=== PATIENT | female | born 1965 | race Caucasian/White ===

== ENCOUNTER 2018-07-24 07:19 | Outpatient (CLI) | payer OTHER, SELFPAY ==
--- NOTE | 2018-07-24 07:45 | DI.MAMMO_ITS ---
SYMPTOM/DIAGNOSIS: SCREENING, FAMILY H/O BREAST CA, Z12.31 MAMMOGRAMS: Mammograms were interpreted according to the usual protocol including computer analysis with CAD system, tomosynthesis and C view imaging. The breasts are heterogeneously dense. No dominant mass or clumped microcalcification is identified in either breast. The current examination is compared with previous examinations including 08/2016 and there has been no gross interval change in appearance in comparison with the previous studies. CONCLUSION: No specific evidence of malignancy at this time. Routine screening examinations are suggested at yearly intervals in this age group according to the ACS/ACR guidelines. Category 1. Breast density, category C. MQSA ASSESSMENT OF FINDINGS: Negative. Category 1. Patient will receive a letter notifying them of these results. Bi-RADS category C. The breasts are heterogeneously dense, which may obscure small masses.
== END 2018-07-24 07:39 ==
PROVIDERS: PCP Internal Medicine; Visit Provider Nurse Practitioner Women's Health
DX: Z12.31 Encounter for screening mammogram for malignant neoplasm of breast (principal); Z80.3 Family history of malignant neoplasm of breast
CPT/HCPCS: 77063; 77067

== ENCOUNTER 2019-03-20 09:36 | Outpatient (CLI) | payer OTHER, SELFPAY ==
--- NOTE | 2019-03-20 09:27 | MERGE_ITS ---
*[facility]* *[facility]* [address] [place] [address] Date of study: 03/20/2019 Transthoracic Echocardiography M-mode, complete 2D, complete spectral Doppler, and color Doppler *STUDY CONCLUSIONS* Summary: 1. Left ventricle: The cavity size was normal. Systolic function was normal. The estimated ejection fraction was 60-65%. Diastolic parameters were normal. There was no evidence of elevated ventricular filling pressure by Doppler parameters. 2. Mitral valve: There was mild regurgitation. 3. Right ventricle: The cavity size was normal. Wall thickness was normal. Systolic function was normal. 4. Atrial septum: No defect or patent foramen ovale was identified. 5. Pulmonary arteries: Systolic pressure could not be accurately estimated. 6. Inferior vena cava: The vessel was normal in size. The respirophasic diameter changes were in the normal range (greater than or equal to 50%), consistent with normal central venous pressure. *PATIENT PRESENTATION* Height: 170.2cm ((67in) ) S/D Pressure: 122 / 73 Weight: 78.5kg ((172.6lb) ) BSA: 1.94m^2 Test start time: 09:30 AM. Test stop time: 10:12 AM. ORDERING Lillian Curry REFERRING Lillian Curry PERFORMING Unknown PERFORMING [facility] MANAGER BALANCE Rachel Johnston CONSULTING Sydney Figueroa *PROCEDURE DATA* Procedure information: This study was interpreted by [facility]. Pertinent images and digital data are archived for permanent storage and are available for subsequent review. Comparison was made to the study of 02/13/2015. Study status: Routine. Transthoracic echocardiography. M-mode, complete 2D, complete spectral Doppler, and color Doppler. A Transthoracic Echocardiogram was performed. Scanning was performed from the parasternal, apical, subcostal, and suprasternal notch acoustic windows. Images were obtained using an [employer]geusAor[employer] SC 2000 cardiac ultrasound machine. Image quality was good. Study completion: The patient tolerated the procedure well. History: PMH: Atrial fibrillation, F/H premature CAD. *CARDIAC ANATOMY* Left ventricle: The cavity size was normal. Systolic function was normal. The estimated ejection fraction was 60-65%. The tissue Doppler parameters were normal. Diastolic parameters were normal. There was no evidence of elevated ventricular filling pressure by Doppler parameters. Aortic valve: Trileaflet. Doppler: There was no stenosis. There was no regurgitation. VTI ratio of LVOT to aortic valve: 0.91. Valve area (VTI): 2.2cm^2. Indexed valve area (VTI): 1.1cm^2/m^2. Peak velocity ratio of LVOT to aortic valve: 0.78. Valve area (Vmax): 1.9cm^2. Indexed valve area (Vmax): 1cm^2/m^2. Mean velocity ratio of LVOT to aortic valve: 0.73. Valve area (Vmean): 1.7cm^2. Indexed valve area (Vmean): 0.9cm^2/m^2. Mean gradient (S): 4.5mm Hg. Peak gradient (S): 8.7mm Hg. Aorta: Aortic root: The aortic root was normal in size. Ascending aorta: The ascending aorta was normal in size. Mitral valve: Doppler: There was no evidence for stenosis. There was mild regurgitation. Valve area by pressure half-time: 4.4cm^2. Indexed valve area by pressure half-time: 2.3cm^2/m^2. Peak gradient (D): 3.4mm Hg. Left atrium: The atrium was normal in size. Atrial septum: No defect or patent foramen ovale was identified. Right ventricle: The cavity size was normal. Wall thickness was normal. Systolic function was normal. Pulmonic valve: Doppler: There was no evidence for stenosis. There was no significant regurgitation. Peak gradient (S): 3.1mm Hg. Tricuspid valve: Doppler: There was mild regurgitation. Pulmonary artery: Poorly visualized. Systolic pressure could not be accurately estimated. Right atrium: The atrium was normal in size. Pericardium: There was no pericardial effusion. Systemic veins: Inferior vena cava: The vessel was normal in size. The respirophasic diameter changes were in the normal range (greater than or equal to 50%), consistent with normal central venous pressure. Measurements Left ventricle Value Reference LV ID, ED, PLAX 4.5 cm 3.5 - 6.0 LV ID, ES, PLAX 2.9 cm 2.1 - 4.0 LV PW thickness, ED, PLAX 0.9 cm LV end-diastolic volume, 1-p A2C 75 ml LV ejection fraction, 1-p A2C 56 % LV end-diastolic volume, 1-p A4C 89 ml LV ejection fraction, 1-p A4C 60 % LV e', lateral 0.112 m/sec LV E/e', lateral 8 LV e', medial 0.131 m/sec LV E/e', medial 7 LV e', average 0.122 m/sec LV E/e', average 8 Ventricular septum Value Reference IVS thickness, ED, PLAX 0.9 cm LVOT Value Reference LVOT ID, A-P 1.7 cm LVOT area 2.4 cm^2 LVOT peak velocity, S 1.15 m/sec LVOT mean velocity, S 0.73 m/sec LVOT VTI, S 29.1 cm LVOT peak gradient, S 5.3 mm Hg LVOT mean gradient, S 2.6 mm Hg Stroke volume (SV), LVOT DP 69 ml Stroke index (SV/bsa), LVOT DP 36 ml/m^2 Aortic valve Value Reference Aortic valve peak velocity, S 1.5 m/sec Aortic valve mean velocity, S 1 m/sec Aortic valve VTI, S 32.0 cm Aortic mean gradient, S 4.5 mm Hg Aortic peak gradient, S 8.7 mm Hg VTI ratio, LVOT/AV 0.91 Aortic valve area, VTI 2.2 cm^2 Velocity ratio, peak, LVOT/AV 0.78 Aortic valve area, peak velocity 1.9 cm^2 Velocity ratio, mean, LVOT/AV 0.73 Aortic valve area, mean velocity 1.7 cm^2 Aortic valve area/bsa, mean velocity 0.9 cm^2/m^2 Aorta Value Reference Aortic root ID, ED 2.9 cm Ascending aorta ID, A-P, S 2.7 cm Left atrium Value Reference LA ID, A-P, ES 3.0 cm LA ID/bsa, A-P 1.5 cm/m^2 <=2.2 LA area, ES, A4C 21.4 cm^2 8.8 - 23.4 LA area, ES, A2C 22 cm^2 LA volume/bsa, S 36 ml/m^2 LA volume, ES, 2-p 63 ml LA volume/bsa, ES, 2-p 33 ml/m^2 LA/aortic root ratio 1.03 Mitral valve Value Reference Mitral E-wave peak velocity 0.92 m/sec Mitral A-wave peak velocity 0.55 m/sec Mitral deceleration time 171 ms 150 - 230 Mitral pressure half-time 50 ms Mitral peak gradient, D 3.4 mm Hg Mitral E/A ratio, peak 1.65 Mitral valve area, PHT, DP 4.4 cm^2 Right atrium Value Reference RA area, ES, A4C 16.7 cm^2 8.3 - 19.5 Pulmonic valve Value Reference Pulmonic peak gradient, S 3.1 mm Hg Legend: (L) and (H) sarah values outside specified reference range. I have personally reviewed the images and have reviewed and edited the reported findings. Electronically signed by Bret Layne MD 03/20/2019 19:06
== END 2019-03-20 09:56 ==
PROVIDERS: PCP Internal Medicine; Visit Provider Family Medicine
DX: I48.91 Unspecified atrial fibrillation (principal); I34.0 Nonrheumatic mitral (valve) insufficiency; Z82.49 Family history of ischemic heart disease and other diseases of the circulatory system
CPT/HCPCS: 93306

== ENCOUNTER 2020-01-11 08:32 | Emergency (ER) | payer OTHER, SELFPAY ==
[2020-01-11] VITALS (30 sets, daily range): BP systolic 104–155; BP diastolic 47–78; PULSE 54–78; RESP 8–18; TEMP 36.8; O2SAT 91–99
--- NOTE | 2020-01-11 08:38 | ED.GENADUL_ITS ---
Discharge Plan Disposition Patient Disposition: HOME Condition: Stable Discharge Details Chief Complaint: Palpitatns Clinical Impression: Palpitations Primary Care Provider: Sydney Figueroa ED Provider: Cortney Osborne Home Meds and New Rx's Prescriptions: Continued estradiol 0.5 MG tablet 1 tab PO DAILY Qty: 90 RF: 12 diltiazem HCl 120 MG capsule,extended release 24hr 120 mg PO DAILY Qty: 90 RF: 12 Discharge Instructions Instructions: Atrial Fibrillation (ED), Palpitations (ED) Additional Instructions: Please return immediately to the emergency department if you develop any new or worsening symptoms, if your condition does not improve as expected, or if you become otherwise concerned. It is extremely important that you call soon as possible to make an appointment to be seen in follow-up for this visit by your primary care doctor and your medical radiation therapist as we discussed. o be seen in follow- up for this visit by your primary care doctor. Seen in follow-up for this visit by your primary care doctor. Referrals: Sydney Figueroa [Primary Care Provider] - Medical Decision Making Kaleigh Infante is a 54-year-old woman with a history of paroxysmal atrial fibrillation on daily diltiazem who presented to the emergency department with palpitations and chest tightness consistent with her typical paroxysmal A. fib symptoms that began at 645 this morning and did not resolve with her morning dose of p.o. diltiazem; now resolved after 10 mg IV diltiazem from EMS in the field. On exam patient is very well and nontoxic-appearing. Benign cardiopulmonary exam. Suspect paroxysmal atrial fibrillation, possible metabolic/lyte derangement. Doubt ACS, pulmonary embolism. Exam/history is not consistent with sepsis, covid-19, acute aortic pathology. Plan for EKG, telemetry, chest x-ray, screening labs. Will monitor and reassess. Patient has had no symptoms since being in the emergency department. Patient has been in sinus rhythm on telemetry for the entirety of her stay. Labs nondiagnostic. Chest x-ray negative. Repeat EKG shows no dynamic changes. Troponin negative x2. I did discuss patient presentation results with her medical radiation therapist, Dr. Cassidy. Dr. Cassidy requested 48-hour Holter monitor, no other acute intervention, will follow up with patient as an outpatient. Holter monitor placed by respiratory therapy. I had a lengthy discussion with Patient regarding return to emergency department precautions, home care, and importance of outpatient follow-up. Pt verbalizes understanding of the plan and is amenable. Patient discharged to home with clear plan for outpatient follow-up. All questions were answered. Disposition decision was made weighing the risks and benefits of hospitalization versus outpatient treatment, the risk for further decompensation, and the patient's wishes. Medical Records Medical records reviewed: Yes I reviewed the patient's medical records. Imaging Data Radiologic Study: Attestation: I personally reviewed and interpreted this imaging study as follows: Radiologist's impression: EXAM: XR PORTABLE CHEST AP CLINICAL HISTORY: afib, chest pain TECHNIQUE: 2D digital imaging was performed. COMPARISON: CHEST 2 VIEWS PA,LAT from 07/27/2017 FINDINGS: Leads overlie the chest. The cardiac and mediastinal contours have a normal appearance. The lungs are well inflated and clear. No infiltrate, effusion or pulmonary edema is seen. IMPRESSION: Negative portable chest. Lab Data Lab results reviewed: Yes I reviewed the patient's lab results. Labs: Laboratory Tests Range/Units 01/11/20 01/11/20 01/11/20 08:45 08:45 08:45 WBC (4.4-10.8) k/cumm 8.68 RBC (4.00-5.20) m/cumm 4.51 Hgb (12.0-15.5) g/dL 13.7 Hct (36.0-46.0) % 41.0 MCV (80-95) fL 90.9 MCH (27.0-33.0) pg 30.4 MCHC (32.0-36.0) g/dL 33.4 RDW (11.7-14.6) % 13.4 Plt Count (130-400) x1000/uL 356 MPV (8.0-11.0) fL 10.6 Immature Gran % % 0.2 Neutrophils % 63.1 Lymphocytes % 25.8 Monocytes % 7.7 Eosinophils % 2.9 Basophils % 0.3 Absolute Neutrophils (1.2-6.7) k/cumm 5.47 Absolute Lymphocytes (1.2-3.4) k/cumm 2.24 Absolute Monocytes (0.11-0.7) k/cumm 0.67 Absolute Eosinophils (0.0-0.7) k/cumm 0.25 Absolute Basophils (0.0-0.2) k/cumm 0.03 D-Dimer (<500) ng/mlFEU 415 Sodium (136-145) mmol/L 142 Potassium (3.5-5.1) mmol/L 3.4 L Chloride (98-107) mmol/L 106 Carbon Dioxide (21.0-32.0) mmol/L 25.1 Anion Gap (3-11) mmol/L 10.9 BUN (7-18) mg/dL 12 Creatinine (0.55-1.02) mg/dL 0.90 Estimated GFR/1.73 m2 (mL/min/1.73m2) >= 60.00 Glucose (74-106) mg/dL 105 Calcium (8.5-10.1) mg/dL 9.3 Magnesium (1.8-2.4) mg/dL 2.0 Total Bilirubin (0.2-1.0) mg/dL 0.4 AST (15-37) U/L 21 ALT (14-59) U/L 33 Alkaline Phosphatase (46-116) U/L 89 Troponin I (<0.06) ng/Ml < 0.05 Total Protein (6.4-8.2) g/dL 8.0 Albumin (3.4-5.0) g/dL 4.0 TSH (0.36-3.74) uIU/mL 4.89 H Free T4 (0.76-1.46) ng/dL 1.16 Range/Units 01/11/20 11:50 WBC (4.4-10.8) k/cumm RBC (4.00-5.20) m/cumm Hgb (12.0-15.5) g/dL Hct (36.0-46.0) % MCV (80-95) fL MCH (27.0-33.0) pg MCHC (32.0-36.0) g/dL RDW (11.7-14.6) % Plt Count (130-400) x1000/uL MPV (8.0-11.0) fL Immature Gran % % Neutrophils % Lymphocytes % Monocytes % Eosinophils % Basophils % Absolute Neutrophils (1.2-6.7) k/cumm Absolute Lymphocytes (1.2-3.4) k/cumm Absolute Monocytes (0.11-0.7) k/cumm Absolute Eosinophils (0.0-0.7) k/cumm Absolute Basophils (0.0-0.2) k/cumm D-Dimer (<500) ng/mlFEU Sodium (136-145) mmol/L Potassium (3.5-5.1) mmol/L Chloride (98-107) mmol/L Carbon Dioxide (21.0-32.0) mmol/L Anion Gap (3-11) mmol/L BUN (7-18) mg/dL Creatinine (0.55-1.02) mg/dL Estimated GFR/1.73 m2 (mL/min/1.73m2) Glucose (74-106) mg/dL Calcium (8.5-10.1) mg/dL Magnesium (1.8-2.4) mg/dL Total Bilirubin (0.2-1.0) mg/dL AST (15-37) U/L ALT (14-59) U/L Alkaline Phosphatase (46-116) U/L Troponin I (<0.06) ng/Ml < 0.05 Total Protein (6.4-8.2) g/dL Albumin (3.4-5.0) g/dL TSH (0.36-3.74) uIU/mL Free T4 (0.76-1.46) ng/dL ECG Data Attestation: I personally reviewed and interpreted this ECG (s) as follows: Interpretation: EKG shows sinus rhythm at 75, normal axis, T wave flattening aVL, subtle ST depression 0.5 mm in leads II, V5, V6, otherwise unchanged from prior, no STEMI, nondiagnostic EKG Repeat EKG shows sinus bradycardia at 58, normal axis, no STEMI, no significant change from today's prior EKG HPI General Mode of arrival: EMS . Date/Time Provider Initiated Documentation: 01/11/20 08:33 . Limitations to Documentation: no limitations . Information obtained by: patient, RN notes reviewed and old records reviewed . HPI Narrative: Kaleigh Infante is a 54-year-old woman with a history of atrial fibrillation presenting to the emergency room with palpitations. Patient reports that she has a history of paroxysmal atrial fibrillation for which she takes daily diltiazem. She reports that she typically has episodes of atrial fibrillation every 2 months or so. Patient reports that over the past week she feels as if she has been going into atrial fibrillation several times, which is unusual for her. Up until today episodes have lasted less than a minute. Patient reports that she woke up feeling in her usual state of health at cheryle roximately 530 this morning. She reports that she felt herself going to atrial fibrillation with palpitations and chest tightness, both typical for her during these episodes, at approximately 645. Patient reports that she took her daily diltiazem at this time, however symptoms did not change. Patient called EMS, and received 10 mg IV diltiazem in route. Patient reports that symptoms resolved rapidly after this medication and patient converted to sinus rhythm in the field per EMS. Patient reports that she currently has no symptoms and feels in her usual state of health. She denies any other recent symptoms: No fever, cough, shortness of breath, vomiting, diarrhea, numbness, weakness. She denies any recent travel, immobilization. Denies alcohol, tobacco, or recreational drug use. Has been eating and drinking as usual. Related Data Home Medications Medication Instructions Recorded Confirmed estradiol 1 tab PO DAILY #90 tab 06/28/17 01/11/20 diltiazem HCl 120 mg PO DAILY #90 tab-cap 08/13/17 01/11/20 Previous Rx's Medication Instructions Recorded estradiol 1 tab PO DAILY #90 tab 06/28/17 diltiazem HCl 120 mg PO DAILY #90 tab-cap 08/13/17 Allergies Allergy/AdvReac Type Severity Reaction Status Date / Time No Known Allergies Allergy Unverified 01/11/20 08:41 Review of Systems Narrative: Constitutional: denies fevers Eyes: denies eye pain ENT: denies ear pain, dental pain, sore throat Cardiovascular: denies chest pain, reports palpitations, her typical mild chest tightness concurrent with earlier palpitations Respiratory: denies SOB, cough GI: denies abdominal pain, vomiting, diarrhea : denies flank pain MSK: denies back pain, neck pain, arthralgias, myalgias Skin: denies rash Neuro: denies headaches, numbness, weakness [facility] Surgical History (Updated 07/16/18 @ 14:36 by Qianmi CA) Abdominal hysterectomy (~02/2005) FINGER FUSION (~02/2015) Family History Mother Essential hypertension Heart disease BYPASS Hyperlipidemia Father Essential hypertension Personal history of malignant neoplasm PROSTATE Hyperlipidemia Sister Essential hypertension Hyperlipidemia Brother Essential hypertension Hyperlipidemia Grandfather No problems noted. Grandfather No problems noted. Grandmother No problems noted. Grandmother No problems noted. Sister Essential hypertension Hyperlipidemia Son No problems noted. Son No problems noted. Daughter Depression Social History Smoking/Tobacco Use Status: Never Alcohol Intake: never Drug use: Never Do you feel safe in your relationship?: Yes Exam Narrative Exam Narrative: Constitutional: well and [id number]-[id number], pleasant, conversing normally HENT: head atraumatic/normocephalic/normal inspection, mucous membranes moist Eyes: conjunctiva normal, sclera normal, pupils 3mm b/l Neck: no stridor, normal ROM, trachea midline Chest: normal inspection Resp: normal work of breathing, LCTAB Cardio: normal rate, normal rhythm, no murmur appreciated Back: normal inspection, no rash Skin: warm, dry, normal color, no rash Neuro: alert, not altered, grossly non-focal, normal tone Ext: no edema Psych: normal mood, normal affect, normal behavior
[2020-01-11 08:56] LABS: Abs Immature Grans 0.02 k/cumm (0.0-0.09); Absolute Basophil Count 0.03 k/cumm (0.0-0.2); Absolute Eosinophil Count 0.25 k/cumm (0.0-0.7); Absolute Lymphocyte Count 2.24 k/cumm (1.2-3.4); Absolute Monocyte Count 0.67 k/cumm (0.11-0.7); Absolute Neutrophil Count 5.47 k/cumm (1.2-6.7); Basophils % 0.3; Eosinophils % 2.9; HGB 13.7 g/dL (12.0-15.5); Immature Grans % 0.2 %; Lymphocytes % 25.8; Mean Corp. HGB Concentration 33.4 g/dL (32.0-36.0); Mean Corpuscular Hemoglobin 30.4 pg (27.0-33.0); Mean Corpuscular Volume 90.9 fL (80-95); Mean Platelet Volume 10.6 fL (8.0-11.0); Monocytes % 7.7; Neutrophils % 63.1; Platelet Count 356 x1000/uL (130-400); RBC 4.51 m/cumm (4.00-5.20); RBC Distribution Width 13.4 % (11.7-14.6); White Blood Cell Count 8.68 k/cumm (4.4-10.8)
--- NOTE | 2020-01-11 09:01 | DI.RAD_ITS ---
EXAM: XR PORTABLE CHEST AP CLINICAL HISTORY: afib, chest pain TECHNIQUE: 2D digital imaging was performed. COMPARISON: CHEST 2 VIEWS PA,LAT from 07/27/2017 FINDINGS: Leads overlie the chest. The cardiac and mediastinal contours have a normal appearance. The lungs are well inflated and clear. No infiltrate, effusion or pulmonary edema is seen. IMPRESSION: Negative portable chest.
[2020-01-11 09:31] LABS: D-Dimer 415 ng/mlFEU (<500)
[2020-01-11 10:27] LABS: ALT 33 U/L (14-59); AST 21 U/L (15-37); Alkaline Phosphatase 89 U/L (46-116); Anion Gap 10.9 mmol/L (3-11); BUN 12 mg/dL (7-18); Bilirubin, Total 0.4 mg/dL (0.2-1.0); CO2 25.1 mmol/L (21.0-32.0); Calcium 9.3 mg/dL (8.5-10.1); Chloride 106 mmol/L (98-107); Glucose 105 mg/dL (74-106); Potassium 3.4 mmol/L (3.5-5.1); Sodium 142 mmol/L (136-145); TSH (W/Ref FT4) 4.89 uIU/mL (0.36-3.74); Troponin I < 0.05 ng/Ml (<0.06)
[2020-01-11 10:43] LABS: FREE T4 1.16 ng/dL (0.76-1.46)
[2020-01-11 12:17] LABS: Troponin I < 0.05 ng/Ml (<0.06)
== END 2020-01-11 12:10 | disposition home or self-care (01) ==
PROVIDERS: Emergency Provider Student in an Organized Health Care Education/Training Program; PCP Internal Medicine
DX: R00.2 Palpitations (principal); I48.0 Paroxysmal atrial fibrillation; Z79.899 Other long term (current) drug therapy
CPT/HCPCS: 36415; 80053; 93005; 99284; 71045; 83735; 84439; 84443; 84484; 85025; 85379; 93010; 93225

== ENCOUNTER 2020-01-13 16:14 | Outpatient (REF) | payer OTHER, SELFPAY ==
--- NOTE | 2020-01-14 08:40 | W.HOLTRPT ---
Date of service: 01/14/20 Time of Service: 08:40 Holter Monitor Report Holter Monitor Note: This is a 48-hour Holter monitor ordered for indication of atrial fibrillation. ?The patient was in normal sinus rhythm for the majority of the recording. ?There were 5 episodes of supraventricular tachycardia with the longest lasting 7 beats at a rate of 136 bpm. There were rare premature atrial contractions. ?There was one episode of ventricular tachycardia which lasted 7 beats at a rate of 126 bpm. There were rare (0.1%) single ventricular ectopic beats. ?There were no episodes of atrial fibrillation no pauses greater than 3 seconds and no evidence of high degree heart block. ?There were no patient triggered events.
== END 2020-01-13 16:34 ==
LOC: RT 16:14
PROVIDERS: PCP Internal Medicine; Visit Provider Internal Medicine
DX: I48.91 Unspecified atrial fibrillation (principal); I47.1 Supraventricular tachycardia
CPT/HCPCS: 93226

== ENCOUNTER 2021-07-21 09:37 | Outpatient (REF) | payer OTHER, SELFPAY ==
[2021-07-21 14:55] LABS: C-Reactive Protein 0.35 mg/dL (0.0-0.3); Magnesium 2.1 mg/dL (1.8-2.4); TSH (W/Ref FT4) 3.42 uIU/mL (0.36-3.74)
[2021-07-21 16:18] LABS: ESR 24 mm/hr (0-30)
[2021-07-24 02:58] LABS: Vitamin D 25 Total 23.1 ng/mL (30-100)
== END 2021-07-21 09:38 | disposition home or self-care (01) ==
LOC: NCHCN 09:37
PROVIDERS: PCP Internal Medicine; Visit Provider Nurse Practitioner Family
DX: M25.59 Pain in other specified joint (principal); G47.9 Sleep disorder, unspecified; Z90.710 Acquired absence of both cervix and uterus
CPT/HCPCS: 82306; 85652; 83735; 84443; 86140

== ENCOUNTER 2022-05-04 10:07 | Day surgery (SDC) | payer OTHER, SELFPAY ==
--- NOTE | 2022-05-03 12:44 | PDOC.DSDIS_ITS ---
Discharge Plan Disposition Patient Disposition: HOME Condition: Good Discharge Details Reason For Visit: colon scope Attending Provider: Adri Cowart Primary Care Provider: Jordyn Bruno Home Meds and New Rx's Prescriptions: Continued flecainide 50 mg tablet 50 mg PO Q12H diltiazem HCl [DILT-XR] 180 mg capsule,ext.rel 24h degradable 240 mg PO DAILY losartan 25 mg tablet 25 tab PO DAILY Label Comments: TAKE ONE TABLET BY MOUTH EVERY DAY Discontinued bisacodyl [Dulcolax (bisacodyl)] 5 mg tablet,delayed release (DR/EC) 5 mg PO ONCE Qty: 4 0RF Rx Instructions: Take according to provider's instructions for colonoscopy prep. polyethylene glycol 3350 17 gram/dose powder 17 g PO ONCE Qty: 238 0RF Rx Instructions: To be taken as directed by prescriber's office for colonoscopy prep. Discharge Instructions Additional Instructions: DSU Colonoscopy Post- Op Instructions Instructions for Everyone who is given Anesthesia: For your safety, please do the following for the next twenty-four (24) hours: *Do Not operate a motor vehicle (car, truck, motorcycle, etc.) *Do Not drink alcoholic beverages or use any recreational drugs for the first 24 hours or while taking pain medications. The medications in your body may have a reaction that can be dangerous. *Do Not make any important decisions or sign any important papers. Findings: x1 polyp Follow up: my office will send a letter in 2-3 wks time, detailing as to what type of polyp it is and when we want you to repeat the colonoscopy-probably 5-7yrs. 1. No lifting over 20 pounds or strenuous activity for the first 24 hours after your procedure. After 24 hours there are no restrictions on your activity but you may feel fatigued for a few days. 2. After you arrive home you may have a light meal and return to your normal diet as you can tolerate it without feeling sick to your stomach. 3. You may have a bloated, gaseous feeling in your belly (abdomen) after a colonoscopy. Passing gas and belching will help. Walking or lying down on your l eft side with your knees flexed may relieve the discomfort. Call the office at [phone] (Office) or [phone] (Hospital) right away if you notice any of the following: a.Vomiting of blood or ?coffee ground stools?. b.Rectal bleeding 1Tbsp, blood clots or continuous bleeding. c.Severe belly (abdominal) pain. d.A hard distended belly (abdomen) and an inability to pass gas. 4. Please don?t expect to have a normal BM (bowel movement) for 2-3 days after your procedure. 5. If there are questions regarding the findings of your procedure, please contact your doctor 6. If you are unable to contact your doctor with a problem, contact the hospital at [phone]. 7. Continue all your regular medications unless directed otherwise. I understand the above instructions and have no questions. Signature of Patient or Adult Escort Name of Responsible Adult Escort Signature of Nurse Date/Time Activity:: See above Diet:: See above Discharge Orders Discharge Orders: Discharge Order (Routine); Ordered 05/03/22 Ordered By: Adri Cowart
--- NOTE | 2022-05-03 12:46 | W.COLOREPORT ---
Colonoscopy Report Date of procedure: 05/04/22 Pre-op diagnosis general: CRC screen Post-op diagnosis procedure note: other (polyp) Surgeon: Adri Cowart Anesthesia Type: General:No Airway Estimated blood loss (mL): 1 Pathology: other Complications: None Disposition: same day Prep: Miralax/Dulcolax Retraction Time: 10 Procedure Description: After informed consent was obtained the patient was taken to the procedure room and placed in a left decubitous position. Monitors were applied and a time out was done. The patients name, date of , procedure, allergies to medications and metal in their body was reviewed. The scar abnormal, was then sedated. Once sedated and comfortable a rectal exam was done. External exam was normal. Internal exam revealed a normal sphincter tone and no palpable masses. The scope was then introduced and retrofelexed. No internal hemorrhoids were identified. The scope was then advanced to the cecum w/out difficulty. The TI and appendiceal orifice were identified. The prep was BBPS 3 in all segments for a total of 9. The scope was then slowly retracted over 10 minutes back into the rectum. There are no diverticula or AVMs visualized today. She has a 1cm polyp on a long stalk. This is removed with a cold snare. All specimen is retrieved and no bleeding is noted. the scope was removed and the patient was woken up and taken back to Same day surgery in stable condition. The patient tolerated the procedure well and there were no immediate complications. Follow up: The patient should follow up in 5-7 years, path pending, unless they develop changes in bowel habits or other new gastrointestinal complaints.
[2022-05-04 10:27] VITALS: BP 121/70; PULSE 76; RESP 17; TEMP 36.6; O2SAT 97
[2022-05-04] MEDS: Lactated Ringers 1,000 ML 80 ML IV (10:46)
--- NOTE | 2022-05-04 10:58 | W.ANESPRE ---
General Info Date of Service Date Performed: 05/04/22 Height: 5 ft 6 in Weight: 78.4 kg Body Mass Index (BMI): 27.8 Surgical Procedure: Operation Date: 05/04/22 11:35 Proposed Procedure Side Surgeon p Colonoscopy Adri Cowart, DO Actual Procedure Side Surgeon p Colonoscopy Adri Cowart, DO Pre-Op Diagnosis Post-Op Diagnosis SCREENING Meds Allergies and Home Medications Allergies Allergy/AdvReac Type Severity Reaction Status Date / Time No Known Allergies Allergy Unverified 05/04/22 10:22 Home Medication Medication Instructions Recorded flecainide 50 mg tablet 50 mg PO Q12H 10/12/21 diltiazem HCl 180 mg 240 mg PO DAILY 04/20/22 capsule,extended release 24 hr, controlled (DILT-XR) losartan 25 mg tablet 25 tab PO DAILY 05/03/22 Current Visit Medications: Current Medications Generic Name Dose Route Start Last Admin Trade Name Freq PRN Reason Stop Dose Admin Hyoscyamine Sulfate 0.125 mg 05/03/22 11:27 Hyoscyamine 0.125 Mg Sl/Oral/Chew SL DIRECTED PRN Ringer's Solution 1,000 mls @ 80 mls/hr 05/04/22 06:00 05/04/22 10:46 IV 06/02/22 23:59 80 mls/hr INFUSION ZACH Administration IV Miscellaneous Supplies 1 each 05/04/22 06:00 Iv Access IV 06/02/22 23:59 DIRECTED ZACH Ondansetron HCl 4 mg 05/03/22 11:27 Ondansetron 4 Mg/2 Ml Vial IVP Q4H PRN PRN Nausea / Vomiting Sodium Chloride 0 ml 05/04/22 06:00 Normal Saline Flush 10 Ml Syr IV 06/02/22 23:59 PRN PRN Sodium Chloride 0 ml 05/04/22 06:00 Normal Saline 10 Ml Vial IJ 06/02/22 23:59 DIRECTED PRN Sterile Water 0 ml 05/04/22 06:00 Water,Injection,Sterile 10 Ml Vial IJ 06/02/22 23:59 DIRECTED PRN PFSH Active Problems Active Problems: Problem Status Onset Code Atrial tachycardia I47.1 Fatigue R53.83 Screening for colon cancer Z12.11 Medical History Medical History Former smoker Paroxysmal atrial fibrillation Polyarthralgia Sleep disturbance Urinary urgency Vaginal atrophy Medical History Comments:: elderly parent had difficult time coming out Surgical History Surgical History (Updated 05/04/22 @ 10:25 by Opal Guallpa) Abdominal hysterectomy (~02/2005) FINGER FUSION (~02/2015) Hx of colonoscopy Tobacco Smoking/Tobacco Use Status: Never Alcohol Alcohol Intake: never Substance Use Substance use: Never Substance use type: does not use Vital Signs and Lab Results Vital Signs Most Recent Vital Signs in EMR: Most Recent Vital Signs Temp Pulse Resp BP Pulse Ox 36.6 C 76 17 121/70 97 05/04/22 10:27 05/04/22 10:27 05/04/22 10:27 05/04/22 10:27 05/04/22 10:27 Lab Results Blood Type / Crossmatch: No Data to Display Complete Blood Count: No Data to Display Complete Metabolic Panel: No Data to Display Liver Function Panel: No Data to Display Coagulation Panel: No Data to Display Cardiac Panel: No Data to Display Arterial Blood Gas: No Data to Display Venous Blood Gas: No Data to Display Pancreas Panel: No Data to Display Thyroid Panel: No Data to Display Infectious Disease: No Data to Display Blood Cultures: No Data to Display Toxicology Panel: No Data to Display Imaging and Studies Imaging and Studies Study information below may be from another EMR and interpreted by another provider. Please see original notes in EMR for more complete details. Stress Test Summary: Impressions: Normal perfusion by Tc99m Sest[facility]. Summary: 1. Myocardial perfusion imaging: No myocardial perfusion defects noted. 2. The calculated left ventricular ejection fraction after stress: 75%. 3. Impressions: Normal perfusion by Tc99m Sest[facility] Echocardiogram Summary: STUDY CONCLUSIONS* Summary: 1. Left ventricle: The cavity size was normal. Systolic function was normal. The estimated ejection fraction was 60-65%. Diastolic parameters were normal. There was no evidence of elevated ventricular filling pressure by Doppler parameters. 2. Mitral valve: There was mild regurgitation. 3. Right ventricle: The cavity size was normal. Wall thickness was normal. Systolic function was normal. 4. Atrial septum: No defect or patent foramen ovale was identified. 5. Pulmonary arteries: Systolic pressure could not be accurately estimated. 6. Inferior vena cava: The vessel was normal in size. The respirophasic diameter changes were in the normal range (greater than or equal to 50%), consistent with normal central venous pressure. Anesthesia Assessment and Plan Anesthesia History Personal History: No History of Anesthesia Complications Family History: Other Exercise Tolerance Exercise Tolerance: Metabolic Equivalents>4 Pertinent Negatives Pertinent Negatives: No Symptoms of GERD, No Major Pulmonary Symptoms or Complaints and No History of CVA/TIA Cardiac & Pulmonary Exam Cardiac Exam: Normal S1/S2 Heart Sounds Pulmonary Exam: Clear Bilateral Breath Sounds Implantable Cardiac Device Does patient have a Pacemaker or an ICD?: No Airway Exam Known Difficult Airway: No Mallampati Class: 2 Mouth Opening: Normal (> 3cm) Thyromental Distance: Greater than 3 cm Neck Range of Motion: Full ROM Neck Circumference: Normal Teeth Condition: Normal Dentition ASA Classification ASA Score: ASA 2 Emergency Case?: No NPO Status NPO Status: NPO Clears >2 hours, Solids >8 hours Anesthesia Plan Resuscitation Status: Full Code Anesthesia Technique: General Anesthesia Airway Planned: Natural Airway Monitors Used: Standard Monitors
[2022-05-04 11:01] VITALS: BMI 27.8
--- NOTE | 2022-05-04 11:28 | BOWEL_PTH ---
PATIENT: Kaleigh Infante LOC: [facility] U#:[id number] AGE/SX: 56/F ROOM: RE05/04/[address]: Adri Cowart : 1965 BED: DIS: 05/04/2022 SPEC #: [id number] RECD: 05/04/22 12:15 STATUS: BOLA RE #: [id number] DASIA: 05/04/22 11:[address]: Adri Cowart DEPT: Surgical Specimen RECD BY: Mariana Bain ENTERED: 05/04/22 12:16 SP TYPE: Bowel OTHR DR: Jordyn Bruno Tissues: 1 - BIOPSY BOWEL Procedures: GROSS AND MICRO LEVEL 4 Comments: [id number]
[2022-05-04 11:48] VITALS: BP 120/65; PULSE 74; RESP 18; TEMP 36.4; O2SAT 96
[2022-05-04] MEDS: Hyoscyamine 0.125 MG SL/ORAL/CHEW SL (11:54)
[2022-05-04 12:13] VITALS: BP 120/64; PULSE 72; RESP 16; TEMP 36.5; O2SAT 98
--- NOTE | 2022-05-04 14:52 | W.ANESPOSTOP ---
Postoperative Evaluation Date, Time and Location Date Performed: 05/04/22 Time Performed: 12:38 Patient Location: Day Surgery Unit Vital Signs Most Recent Imported Vital Signs: Most Recent Vital Signs Temp Pulse Resp BP Pulse Ox 36.5 C 72 16 120/64 98 05/04/22 12:13 05/04/22 12:13 05/04/22 12:13 05/04/22 12:13 05/04/22 12:13 Pain Score Most Recent Pain Score: Most Recent Pain Score Pain Level 0 05/04/22 10:27 Assessment Mental Status: Awake (Alert & Oriented to Patient Baseline) Airway and Respiratory Function: Patent airway with normal (patient baseline) respiratory exam Cardiovascular Function: Hemodynamically Stable Hydration Status: Adequately Hydrated Nausea & Vomiting: No Nausea or Vomiting Pain: Pt. Denies Any Pain Peripheral Nerve Block: Patient did not receive a nerve block
== END 2022-05-04 12:58 | disposition home or self-care (01) ==
PROVIDERS: PCP Nurse Practitioner Family; Visit Provider Surgery
PROC: 0DJD8ZZ Inspection of Lower Intestinal Tract, Via Natural or Artificial Opening Endoscopic (ICD-10-PCS; CPT 45378; principal; 2022-05-04 11:30)
DX: Z12.11 Encounter for screening for malignant neoplasm of colon (principal); K63.5 Polyp of colon
CPT/HCPCS: 45385; 88305; J3490

== ENCOUNTER → 2022-11-19 10:41 | Outpatient (CLI) | payer SELFPAY | LOC: CARDOPNVT 10:41 | PROVIDERS: PCP Nurse Practitioner Family | DX: I49.9 Cardiac arrhythmia, unspecified (principal) | CPT/HCPCS: 93246 ==

== ENCOUNTER 2022-12-10 08:20 | Outpatient (CLI) | payer SELFPAY ==
--- NOTE | 2022-12-10 12:50 | W.CARDEVENT ---
Date of service: 12/10/22 Time of Service: 12:50 Cardiac Event Recorder Referring Provider:: Carson Cassidy Indications:: Cardiac arrhythmia Cardiac Event Note: This is a 14-day cardiac event monitor Rhythm throughout was sinus with an average heart rate of 68. Minimum was 51, maximum 115 There were very rare isolated ventricular premature beats There were rare atrial premature beats. There were six brief self-limited atrial runs generally 3-5 beats in duration. There was no atrial fibrillation, no high-grade AV block, no pauses greater than 3 seconds Patient symptoms were reported but had no correlation to any dysrhythmia
== END 2022-12-10 08:21 | disposition home or self-care (01) ==
LOC: CARDOPNVT 08:20
PROVIDERS: PCP Nurse Practitioner Family; Visit Provider Internal Medicine Cardiovascular Disease
DX: I49.9 Cardiac arrhythmia, unspecified (principal)

== ENCOUNTER 2023-02-08 16:52 | Outpatient (REF) | payer OTHER, SELFPAY ==
[2023-02-08 19:37] LABS: ALT 23 U/L (14-59); AST 18 U/L (15-37); Albumin 3.7 g/dL (3.4-5.0); Alkaline Phosphatase 92 U/L (46-116); BUN 20 mg/dL (7-18); Bilirubin, Total 0.2 mg/dL (0.2-1.0); Calcium 9.3 mg/dL (8.5-10.1); Calculated LDL 158 mg/dL (<100); Chloride 108 mmol/L (98-107); Cholesterol 217 mg/dL (<200); Estimated GFR 65.71 (mL/min/1.73m2); Glucose 102 mg/dL (74-106); HDL Cholesterol 32 mg/dL (40-60); Potassium 3.8 mmol/L (3.5-5.1); Sodium 139 mmol/L (136-145); TSH 2.75 uIU/mL (0.36-3.74); Total Protein 7.5 g/dL (6.4-8.2); Triglyceride 136 mg/dL (<150)
[2023-02-08 19:51] LABS: Vitamin D 25 Total 28.3 ng/mL (30-100)
== END 2023-02-08 16:53 | disposition home or self-care (01) ==
LOC: NCHCN 16:52
PROVIDERS: PCP Nurse Practitioner Family; Visit Provider Nurse Practitioner Family
DX: Z00.00 Encounter for general adult medical examination without abnormal findings (principal); Z13.29 Encounter for screening for other suspected endocrine disorder; Z13.228 Encounter for screening for other metabolic disorders; Z13.220 Encounter for screening for lipoid disorders; Z13.21 Encounter for screening for nutritional disorder
CPT/HCPCS: 80053; 80061; 82306; 84443

== ENCOUNTER → 2023-05-16 02:22 | Outpatient (CLI) | payer OTHER, SELFPAY ==
--- NOTE | 2023-05-16 | DI.MAMMO_ITS ---
Exam(s) MAMMO SCREENING EXAM: MAMMO SCREENING CLINICAL HISTORY: SCREENING MAMMO FOR BREAST CANCER Z12.31. TECHNIQUE: Bilateral full field digital CC and MLO mammographic images were obtained with 3D tomosyn thesis and utilizing computer aided detection (CAD). COMPARISON: Prior mammograms were reviewed. Most recent was 2018 FINDINGS: There are no new significant radiograph findings in left breast. In the right breast there are 2 adjacent nodular densities. One is unchanged in size and the other h as decreased in size when compared 2016 in 2018. More laterally on the CC view there is a suggestion of another nodular density more evident than prev ious measuring approximately 4 x 4 mm and located 7 cm in from the nipple on the CC view. Compressio n view and ultrasound recommended. There are no malignant-appearing microcalcification groups is region or elsewhere in either breast. There is no significant architectural distortion nor skin thickening-retraction. IMPRESSION: 1. No radiographic evidence of malignancy in the left breast. 2. In addition to stable benign-appearing right breast nodules there is suggestion of an additional p ossible new nodule in the right breast. Spot compression CC view and breast ultrasound recommended. BI-RADS Category 0 - Assessment Incomplete: Need additional imaging evaluation Breast Density - Category C - Heterogeneously dense Breast density Category C or D implies that the patient has dense breast tissue. Dense breast tissue can make it harder to find cancer on a mammogram. Dense breast tissue is also associated with an incr eased risk of breast cancer. This information about the result of the mammogram report was provided to the patient to raise their awareness. Use this report when you speak with the patient about their risks for breast cancer, which includes their family history. At that time, you may recommend additional screening tests (Ultrasoun d or MRI) as these tests may add significant information. A negative radiographic report should not delay biopsy if a dominant or clinically suspicious mass is present. Up to ten percent of cancers are not identified on mammography. A negative report may reinforce clinical impression. Adenosis and dense breasts may obscure an underlying neoplasm. False positive reports average 6 to 10%. Patient will receive a letter notifying them of these results.
--- NOTE | 2023-05-16 | DI.DEXA_ITS ---
Exam(s) XR DEXA BONE DENSITY W/WO GISELLE EXAM: XR DEXA BONE DENSITY W/WO GISELLE CLINICAL HISTORY: MENOPAUSAL Z78.0 TECHNIQUE: Routine DEXA evaluation of the lumbar spine, hip, or forearm. COMPARISON: No exams were available for comparison FINDINGS: Performed on a Hologic unit. Lateral image: No compression fracture evident. Lumbar Spine total T-score: -0.7 Hip total T-score:-1.3 Independent reading at the level of the femoral neck yields T-score of -2.1 Forearm total T-score: -0.1 IMPRESSION: Bone mineral density measures in the osteopenia range. Fracture risk is moderate. Note: Any spine fracture indicates 5x risk for subsequent spine fracture and 2x risk for subsequent h ip fracture. World Health Organization criteria for BMD interpretation classify patients: Normal...... T- Score at or above -1.0 Osteopenic... T- Score between -1.0 and -2.5 Osteoporosis... T-Score at or below -2.5
== END ==
PROVIDERS: PCP Nurse Practitioner Family; Visit Provider Nurse Practitioner Family
DX: Z12.31 Encounter for screening mammogram for malignant neoplasm of breast (principal); Z13.820 Encounter for screening for osteoporosis; Z78.0 Asymptomatic menopausal state
CPT/HCPCS: 77063; 77067; 77080

== ENCOUNTER → 2023-05-21 01:50 | Outpatient (CLI) | payer OTHER, SELFPAY ==
--- NOTE | 2023-05-21 | DI.MAMMO_ITS ---
Exam(s) MG MAMMO SCREEN CALL BACK UNI US BREAST RT COMPLETE EXAM: MG MAMMO SCREEN CALL BACK UNI-RIGHT RIGHT BREAST ULTRASOUND CLINICAL HISTORY: F/U MAMMO, POSSIBLE NEW NODULE RT BREAST. TECHNIQUE: Unilateral spot mammographic images obtained with 3D tomosynthesisand utilizing computer aided detection (CAD). . Complete RIGHT breast Ultrasound was also performed, including all 4 quadrants, the retroareolar zack on, and the ipsilateral axilla. COMPARISON: Prior mammograms were reviewed. This additional imaging was performed due to findings described on the recent screening mammogram of 05/16/2023. FINDINGS: DIAGNOSTIC MAMMOGRAM: Additional mammographic views performed todaydo not dissipate the 2 medially adjacent nodules. The o ther finding described on the screening mammogram is less evident on 3D spot compression view perform ed today COMPLETE RIGHT BREAST ULTRASOUND: Ultrasound performed today reveals 2 adjacent 9 microcysts at the 12 o'clock position corresponding t o the 2 nodules on the mammogram. The larger measures 4 mm. The smaller measures 2 mm.. At the deep 11 o'clock position there is a wider than taller benign-appearing finding which may just represent an asymmetric lobule within dense tissue. Other possibly is a deep cyst or fibroadenoma. This has benign appearance, wider than taller and measuring 9 x 3 mm. This is not seen on the mammo gram. Scanning of the ipsilateral axilla reveals no significant adenopathy. IMPRESSION: 1. There are 2 benign adjacent microcysts at 12 o'clock position which correspond to the definitive nodules on the mammogram. 2. There is another ultrasound finding at the deep 11 o'clock position measuring 9 x 3 mm as describ ed above, probably benign but should undergo repeat ultrasound examination in 6 months to ensure stab ility The patient was informed of these findings and recommendations by myself prior to leaving the departm ent today. BI-RADS Category 3 - 6 month - Probably Benign Finding: Recommend follow-up mammography in 6 months Breast Density - Category C - Heterogeneously dense Breast density Category C or D implies that the patient has dense breast tissue. Dense breast tissue can make it harder to find cancer on a mammogram. Dense breast tissue is also associated with an incr eased risk of breast cancer. This information about the result of the mammogram report was provided to the patient to raise their awareness. Use this report when you speak with the patient about their risks for breast cancer, which includes their family history. At that time, you may recommend additional screening tests (Ultrasoun d or MRI) as these tests may add significant information. A negative radiographic report should not delay biopsy if a dominant or clinically suspicious mass is present. Up to ten percent of cancers are not identified on mammography. A negative report may reinforce clinical impression. Adenosis and dense breasts may obscure an underlying neoplasm. False positive reports average 6 to 10%. Patient will receive a letter notifying them of these results.
== END ==
PROVIDERS: PCP Nurse Practitioner Family; Visit Provider Nurse Practitioner Family
DX: Z12.31 Encounter for screening mammogram for malignant neoplasm of breast (principal); N63.12 Unspecified lump in the right breast, upper inner quadrant
CPT/HCPCS: 76642; 77063; 77067

== ENCOUNTER 2023-09-18 10:08 | Emergency (ER) | payer OTHER, SELFPAY ==
[2023-09-18] VITALS (43 sets, daily range): BP systolic 123–169; BP diastolic 49–104; PULSE 59–143; RESP 9–26; TEMP 36.6; O2SAT 95–100
--- NOTE | 2023-09-18 10:00 | RT.EKG_ITS ---
APPROVED REPORT Exam: Resting ECG Reason for Exam: Tachycardia Patient Location: E HR:130 bpm ECG Measurements Heart Rate 130 AXIS KS 122 P 0 QRSd 78 QRS -18 QT 355 T 89 QTc 523 Conclusion Sinus tachycardia...rate> 99 Nonspecific repol abnormality, lateral leads...ST dep, T neg, I aVL V5 V6 Prolonged QT interval...QTc >510mS
[2023-09-18 10:39] LABS: Abs Immature Grans 0.03 10^3/uL (0.0-0.06); Absolute Basophil Count 0.07 10^3/uL (0.0-0.2); Absolute Monocyte Count 0.61 10^3/uL (0.1-0.8); Absolute Neutrophil Count 6.28 10^3/uL (1.2-6.7); Basophils % 0.7; Eosinophils % 2.1; HCT 45.9 % (36.0-46.0); HGB 14.9 g/dL (11.2-15.7); Immature Grans % 0.3; Lymphocytes % 23.4; MCH 29.6 pg (27.0-33.0); MCHC 32.5 % (32.0-36.0); MCV 91 fL (80-95); MPV 10.1 fL (8.0-11.0); Monocytes % 6.5; Platelet Count 425 10^3/uL (130-400); RBC 5.03 10^6/uL (3.93-5.22); RDW-SD 43.7 fL; WBC 9.39 10^3/uL (4.4-10.8)
[2023-09-18] MEDS: Normal Saline 1,000 ML 1000 ML IV (10:44)
--- NOTE | 2023-09-18 10:45 | RT.EKG_ITS ---
APPROVED REPORT Exam: Resting ECG Reason for Exam: chest pain Patient Location: E HR:97 bpm ECG Measurements Heart Rate 97 AXIS VT 188 P 0 QRSd 81 QRS -17 QT 333 T 88 QTc 424 Conclusion Sinus rhythm...normal P axis, V-rate 60- 99 afib, LAD, ? old IMI - Q's in II ajnd aVF, No acute ST elevation, no STEMI, Improved from previous
--- NOTE | 2023-09-18 11:18 | ED.GENADUL_ITS ---
Discharge Plan Disposition Patient Disposition: Home Discharge Details Clinical Impression: Atrial tachycardia Primary Care Provider: Jordyn Bruno ED Provider: Kalli Magana Home Meds and New Rx's Prescriptions: Continued flecainide 50 mg tablet 50 mg PO Q12H diltiazem HCl [DILT-XR] 180 mg capsule,ext.rel 24h degradable 240 mg PO DAILY losartan 25 mg tablet 25 tab PO DAILY Patient Comments: TAKE ONE TABLET BY MOUTH EVERY DAY Discharge Instructions Additional Instructions: Continue to take your prescribed meds and call your fiber glass worker tomorrow, you may benefit from having an as needed beta-garrett, you responded really well to 2.5 mg of metoprolol today when you were experiencing tachycardia with ambulation only for fast heart rate We have not spoken with cardiology and recommended speaking with them before your discharge, however you are feeling improvement and that is reassuring, if your symptoms should return please return for reassessment Referrals: Jordyn Bruno [Primary Care Provider] - Carson Payton [ [facility] STAFF PHYSICIAN] - Discharge Data Discharge Date/Time-TO BE ENTERED AT DEPARTURE: 09/18/23 15:42 Medical Decision Making 58-year-old female well in appearance, blood pressure stable, narrow complex tachycardia noted, appears regular on EKG Not endorsing any symptoms at time of assessment, pulse 140, after 15 minutes, pulse is ranging from 90-100, will hold on medication at this time, blood pressure remains stable, will order troponin, and chest x-ray, labs, all of which not show evidence of acute abnormality TSH and magnesium are within normal limits, chest x-ray per radiology interpretation my review does not show acute abnormality Interestingly when patient stands and walks, pulse goes up to 140, as patient is on flecainide and diltiazem, will consult with cardiology, took proximately 2 hours for cardiology to return phone call, will attempt 2.5 mg of metoprolol, past metoprolol administration, patient's pulse is 60 which is her reported rate at baseline, with exertion, pulse does not range higher than 80, patient does not endorse any chest pain or shortness of breath, cardiology is still pending return phone call, patient is requesting discharge home, at this time she is stable, she is ambulatory she has a negative troponin, I did consider PE however she is not hypoxic or tachypneic and the tachycardia is with exertion only and consistent with her prior episodes of atrial tachycardia, there is no evidence of obvious atrial flutter or atrial fibrillation, she is alert, oriented, of decisional capacity and aware that she is leaving prior to cardiology consultation Cardiology did call back and spoke with Yves phonograph needle tip maker at [facility] who does not recommend change of patient's medication at this time, she will continue on the diltiazem and flecainide She will have an appointment next week, he assures me that he will be in [place] and will have office contact her to schedule an appointment, she is given low threshold to return immediately should she have return of symptoms She is discharged home in stable condition with stable vitals HPI General Date/Time Provider Initiated Documentation: 09/18/23 10:11 . HPI Narrative: This 58-year-old female with history of atrial tachycardia, paroxysmal atrial fibrillation presents with report of tachycardia which started approximately 5:00 this morning. She states that her heart is racing and she is having intermittent pain in her back. She denies any anterior chest pain. She denies any diaphoresis or shortness of breath. She states she has had several of these episodes in the past which 1 self resolved and the other he required medication. She states her symptoms are identical. Related Data Home Medications Medication Instructions Recorded Confirmed flecainide 50 mg tablet 50 mg PO Q12H 10/12/21 09/18/23 diltiazem HCl 180 mg 240 mg PO DAILY 04/20/22 09/18/23 capsule,extended release 24 hr, controlled (DILT-XR) losartan 25 mg tablet 25 tab PO DAILY 05/03/22 09/18/23 Allergies Allergy/AdvReac Type Severity Reaction Status Date / Time No Known Allergies Allergy Unverified 09/18/23 10:14 General Stated Complaint: Arrhythmia MIRELLA: 3 PFSH All Active Problems (Updated 09/18/23 @ 15:12 by CHETAN Trejo) Hyperplastic colon polyp (Acute) Atrial tachycardia (Acute) Fatigue (Acute) Screening for colon cancer (Acute) Medical History (Updated 09/18/23 @ 15:12 by CHETAN Trejo) Paroxysmal atrial fibrillation Former smoker Vaginal atrophy Urinary urgency Polyarthralgia Sleep disturbance Surgical History (Updated 05/16/22 @ 08:03 by Georgiana Perez RN) Hx of colonoscopy (~05/04/22) Abdominal hysterectomy (~02/2005) FINGER FUSION (~02/2015) Family History Mother Essential hypertension Heart disease BYPASS Hyperlipidemia Father Essential hypertension Personal history of malignant neoplasm PROSTATE Hyperlipidemia Sister Essential hypertension Hyperlipidemia Brother Essential hypertension Hyperlipidemia Grandfather No problems noted. Grandfather No problems noted. Grandmother No problems noted. Grandmother No problems noted. Sister Essential hypertension Hyperlipidemia Son No problems noted. Son No problems noted. Daughter Depression Social History Smoking/Tobacco Use Status: Never Smoking risk assessment performed?: Yes Alcohol Intake: never Drug use: Never Substance use type: does not use Housing: house Current gender identity: female Do you feel safe at home: Yes Do you feel safe in your relationship?: Yes Course Vital Signs Vital signs: Vital Signs Temperature 36.6 C 09/18/23 10:11 Pulse 141 H 09/18/23 10:11 Respiratory Rate 18 09/18/23 10:11 Blood Pressure 145/74 H 09/18/23 10:11 Pulse Oximetry 98 09/18/23 10:11 Temperature 36.6 C 09/18/23 10:11 Pulse 141 H 09/18/23 10:11 Respiratory Rate 18 09/18/23 10:11 Respiratory Effort Normal 09/18/23 10:15 Blood Pressure 145/74 H 09/18/23 10:11 Pulse Oximetry 98 09/18/23 10:11 Pain Level 0 09/18/23 10:11 Lab/Test Results Lab/Test Results: Laboratory Tests Range/Units 09/18/23 10:32 WBC (4.4-10.8) 10^3/uL 9.39 RBC (3.93-5.22) 10^6/uL 5.03 Hgb (11.2-15.7) g/dL 14.9 Hct (36.0-46.0) % 45.9 MCV (80-95) fL 91 MCH (27.0-33.0) pg 29.6 MCHC (32.0-36.0) % 32.5 RDW (11.7-14.6) % 13.0 Plt Count (130-400) 10^3/uL 425 H MPV (8.0-11.0) fL 10.1 Immature Gran % 0.3 Neutrophils % 67.0 Lymphocytes % 23.4 Monocytes % 6.5 Eosinophils % 2.1 Basophils % 0.7 Nucleated RBC % (0.0-0.3) % 0.0 Absolute Neutrophils (1.2-6.7) 10^3/uL 6.28 Absolute Lymphocytes (1.2-3.4) 10^3/uL 2.20 Absolute Monocytes (0.1-0.8) 10^3/uL 0.61 Absolute Eosinophils (0.0-0.7) 10^3/uL 0.20 Absolute Basophils (0.0-0.2) 10^3/uL 0.07 Sodium Cancelled Potassium Cancelled Chloride Cancelled Carbon Dioxide Cancelled Anion Gap Cancelled BUN Cancelled Creatinine Cancelled Est GFR (CKD-EPI 2020) Cancelled Glucose Cancelled Calcium Cancelled Magnesium Cancelled Total Bilirubin Cancelled AST Cancelled ALT Cancelled Alkaline Phosphatase Cancelled Total Protein Cancelled Albumin Cancelled TSH Cancelled PAWSS Have you Been Recently Intoxicated or Drunk Within the Last 30 days?: No Have you Ever Experienced Previous Episodes of Alcohol Withdrawal?: No Have you ever Experienced Withdrawal Seizures?: No Have you ever Experienced Delirium Tremens(DT)s?: No Have you ever undergone Alcohol Rehabilitation Treatment (i.e, inpt ot outpatient treatment programs)?: No Have you ever Experienced Blackouts?: No Have you ever Combined Alcohol with other Downers within the last 90 days?: No Have you ever Combined Alcohol with any other Substance of Abuse during the last 90 days?: No Result: 0
[2023-09-18 11:48] LABS: ALT 25 U/L (14-59); AST 12 U/L (15-37); Albumin 3.6 g/dL (3.4-5.0); Alkaline Phosphatase 92 U/L (46-116); Anion Gap 9.7 mmol/L (3-11); BUN 8 mg/dL (7-18); Bilirubin, Total 0.3 mg/dL (0.2-1.0); CO2 25.3 mmol/L (21.0-32.0); CREATININE 0.8 mg/dL (0.55-1.02); Chloride 107 mmol/L (98-107); Estimated GFR 85.35 (mL/min/1.73m2); Glucose 109 mg/dL (74-106); Magnesium 2.1 mg/dL (1.8-2.4); Potassium 3.5 mmol/L (3.5-5.1); Sodium 142 mmol/L (136-145); TSH (W/Ref FT4) 3.27 uIU/mL (0.36-3.74); Total Protein 7.5 g/dL (6.4-8.2)
--- NOTE | 2023-09-18 12:10 | DI.RAD_ITS ---
Exam(s) XR CHEST 2V PA LATERAL EXAM: XR CHEST 2V PA LATERAL CLINICAL HISTORY: back pain. TECHNIQUE: 2D digital imaging was performed. COMPARISON: CR XR PORTABLE CHEST AP from 01/11/2020 FINDINGS: 2 views: Heart size is normal. The mediastinum is not widened. Lungs are clear. No infiltrates nor pleural effusions. IMPRESSION: No acute pulmonary findings. DATA REPOSITORY: RADIATION DOSE DELIVERED:
[2023-09-18 12:27] LABS: Troponin I < 50 ng/L (<or=60)
[2023-09-18] MEDS: Metoprolol 5 MG/5 ML VIAL IVP (13:30)
[2023-09-18 14:00] LABS: Troponin I < 50 ng/L (<or=60)
--- NOTE | 2023-09-18 15:15 | RT.EKG_ITS ---
APPROVED REPORT Exam: Resting ECG Reason for Exam: Chest Pain Patient Location: E HR:66 bpm ECG Measurements Heart Rate 66 AXIS DE 210 P 50 QRSd 85 QRS -13 QT 418 T 54 QTc 437 Conclusion Sinus rhythm...normal P axis, V-rate 60- 99 Prolonged DE interval...DE >210, V-rate 50- 90 NSR, LAD, No STEMI, improved from previous.
== END 2023-09-18 15:42 | disposition home or self-care (01) ==
PROVIDERS: Emergency Provider Physician Assistant; PCP Nurse Practitioner Family
DX: R00.2 Palpitations (principal); I48.0 Paroxysmal atrial fibrillation; Z87.891 Personal history of nicotine dependence
CPT/HCPCS: 36415; 80053; 80299; 93005; 96361; 96374; 99283; 71046; 83735; 84443; 84484; 85025; 93010

== ENCOUNTER 2023-10-19 03:46 | Emergency (ER) | payer OTHER, SELFPAY ==
[2023-10-19] VITALS (46 sets, daily range): BP systolic 84–126; BP diastolic 31–85; PULSE 58–80; RESP 7–24; TEMP 36; O2SAT 99
--- NOTE | 2023-10-19 03:30 | RT.EKG_ITS ---
APPROVED REPORT Exam: Resting ECG Reason for Exam: SOB Patient Location: E HR:67 bpm ECG Measurements Heart Rate 67 AXIS MT [id number] P 0 QRSd 98 QRS 7 QT 512 T 62 QTc 541 Conclusion AV block, complete (third degree)...V-rate< 60, AV dissociation Prolonged QT interval...QTc >510mS Physician: no stemi
[2023-10-19] MEDS: Normal Saline 500 ML IV (03:58)
[2023-10-19] MEDS: nitroGLYcerin 0.4 MG TAB SL (04:05)
[2023-10-19 04:06] LABS: Abs Immature Grans 0.04 10^3/uL (0.0-0.06); Absolute Basophil Count 0.08 10^3/uL (0.0-0.2); Absolute Eosinophil Count 0.25 10^3/uL (0.0-0.7); Absolute Lymphocyte Count 3.02 10^3/uL (1.2-3.4); Absolute Monocyte Count 0.72 10^3/uL (0.1-0.8); Absolute Neutrophil Count 6.73 10^3/uL (1.2-6.7); Basophils % 0.7; Eosinophils % 2.3; HCT 36.8 % (36.0-46.0); HGB 12.4 g/dL (11.2-15.7); Immature Grans % 0.4; Lymphocytes % 27.9; MCH 30.8 pg (27.0-33.0); MCHC 33.7 % (32.0-36.0); MCV 91 fL (80-95); Monocytes % 6.6; Neutrophils % 62.1; Platelet Count 350 10^3/uL (130-400); RBC 4.03 10^6/uL (3.93-5.22); RDW 13.2 % (11.7-14.6); RDW-SD 44.7 fL; WBC 10.84 10^3/uL (4.4-10.8)
--- NOTE | 2023-10-19 04:14 | ED.GENADUL_ITS ---
HPI General Date/Time Provider Initiated Documentation: 10/19/23 03:52 . HPI Narrative: This is a 58-year-old female with a past medical history of SVT, currently on flecainide, family history of cardiac disease for herself, high cholesterol, who presents today for evaluation of left-sided chest pain. Patient states that 45 minutes prior to arrival she had a sudden onset chest pressure that woke her out of sleep. It went from the xiphoid process around the chest to the back on the left. It was slightly worse when she would breathe. She describes it as a pressure and achy-like sensation. No sharp or stabbing component. If she lies back or her back muscles or massage this impro ves the symptoms. She denies any vomiting but does admit to notable burping since the symptoms began. She denies numbness or tingling. No vomiting or diarrhea. She did have a Caesar salad last night which was relatively benign for her. No alcohol. She denies having symptoms like this in the past to this severity. She denies any shortness of breath or exertional discomfort. No other complaints at this time. Related Data Home Medications Medication Instructions Recorded Confirmed flecainide 50 mg tablet 100 mg PO Q12H 10/12/21 10/19/23 diltiazem HCl 180 mg 240 mg PO DAILY 04/20/22 10/19/23 capsule,extended release 24 hr, controlled (DILT-XR) losartan 25 mg tablet 25 tab PO DAILY 05/03/22 10/19/23 Allergies Allergy/AdvReac Type Severity Reaction Status Date / Time No Known Allergies Allergy Unverified 10/19/23 03:55 General Stated Complaint: Epigastric Pain/Over45 MIRELLA: 2 Review of Systems All systems reviewed & are unremarkable except as noted in HPI and below Exam Narrative Exam Narrative: 1.Const: Well-nourished, Well-developed, appearing stated age 2.Eyes: PERRL, no conjunctival injection, and symmetrical lids. 3.ENT: Atraumatic external nose and ears. Moist MM. Neck: Symmetric, trachea midline, No thyromegaly. 4.CVS: +S1/S2, No murmurs or gallops. Peripheral pulses 2+ and equal in all extremities. Brisk capillary refill in all extremities. 5.RESP: Unlabored respiratory effort. Clear to auscultation bilaterally. No wheezes rales or rhonchi 6.GI: Soft, Nontender/Nondistended, No hepatosplenomegaly. No guarding or rebound. 7.MSK: Normocephalic/Atraumatic, Extremities w/o deformity or ttp No cyanosis or clubbing, Normal movement of all extremities 8.Skin: Warm, Dry. No rashes or lesions. 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 Sensation grossly intact, no focal neurologic deficits. 10.Psych: (AAO) x3. Appropriate mood and affect Course Vital Signs Vital signs: Vital Signs Temperature 36.0 C L 10/19/23 03:45 Pulse 80 10/19/23 03:45 Respiratory Rate 20 10/19/23 03:45 Blood Pressure 126/85 10/19/23 03:45 Pulse Oximetry 99 10/19/23 03:45 Temperature 36.0 C L 10/19/23 03:45 Temperature Source Skin 10/19/23 03:45 Pulse 80 10/19/23 03:45 Respiratory Rate 20 10/19/23 03:45 Blood Pressure 126/85 10/19/23 03:45 Blood Pressure Position Sitting 10/19/23 03:45 Pulse Oximetry 99 10/19/23 03:45 Oxygen Delivery Method Room Air 10/19/23 03:45 Oxygen Flow Rate 0 10/19/23 03:45 Pain Level 5 10/19/23 03:52 Lab/Test Results Lab/Test Results: Laboratory Tests Range/Units 10/19/23 03:48 WBC (4.4-10.8) 10^3/uL 10.84 H RBC (3.93-5.22) 10^6/uL 4.03 Hgb (11.2-15.7) g/dL 12.4 Hct (36.0-46.0) % 36.8 MCV (80-95) fL 91 MCH (27.0-33.0) pg 30.8 MCHC (32.0-36.0) % 33.7 RDW (11.7-14.6) % 13.2 Plt Count (130-400) 10^3/uL 350 MPV (8.0-11.0) fL 11.0 Immature Gran % 0.4 Neutrophils % 62.1 Lymphocytes % 27.9 Monocytes % 6.6 Eosinophils % 2.3 Basophils % 0.7 Nucleated RBC % (0.0-0.3) % 0.0 Absolute Neutrophils (1.2-6.7) 10^3/uL 6.73 H Absolute Lymphocytes (1.2-3.4) 10^3/uL 3.02 Absolute Monocytes (0.1-0.8) 10^3/uL 0.72 Absolute Eosinophils (0.0-0.7) 10^3/uL 0.25 Absolute Basophils (0.0-0.2) 10^3/uL 0.08 Medical Decision Making This is a 58-year-old female with a past medical history of SVT, currently on flecainide, family history of cardiac disease for herself, high cholesterol, who presents today for evaluation of left-sided chest pain. Patient states that 45 minutes prior to arrival she had a sudden onset chest pressure that woke her out of sleep. It went from the xiphoid process around the chest to the back on the left. It was slightly worse when she would breathe. She describes it as a pressure and achy-like sensation. No sharp or stabbing component. If she lies back or her back muscles or massage this improves the symptoms. She denies any vomiting but does admit to notable burping since the symptoms began. She denies numbness or tingling. No vomiting or diarrhea. She did have a Caesar salad last night which was relatively benign for her. No alcohol. She denies having symptoms like this in the past to this severity. She denies any shortness of breath or exertional discomfort. No other complaints at this time. Exam demonstrates well-appearing female, no rash on the left chest. No reproducible chest wall tenderness. Pain is slightly improved with palpating of the musculature of the left back. Radial pulses are equal bilaterally and bilateral blood pressures are the same. No significant arm asymmetry. Limited bedside echo demonstrates good ejection fraction, no signs of tamponade. Differential includes esophageal spasm, cardiac etiology, Prinzmetal's angina, less likely ACS. PE or dissection are low on the differential. Will get a D- dimer, give a single nitroglycerin, evaluate for concerning etiologies, monitor closely and reassess. EKG shows no signs of STEMI. 4:18 AM After administration of single nitroglycerin the patient's epigastric pressure/pain completely resolved. She then only had mild continuation of the back component. She is feeling much better. She does not want any additional medications for the pain. Laboratory workup has returned, negative D-dimer, chest x-ray benign. Laboratory workup unremarkable. Symptoms inconsistent with PE or ACS. Patient does have mild elevation of her transaminases. She denies any significant acetaminophen use, alcohol use, IV or illicit drug use, or recent seafood intake. We will send a hepatitis panel for outpatient follow-up. Recommend outpatient follow-up for reassessment in 2 to 4 weeks to make sure her transaminases are declining. Bilirubin normal, abdominal exam shows no right upper quadrant tenderness or hepatomegaly to suggest mick hepatitis or cholecystitis or choledocholithiasis. There is evidence of a small patchy opacity in the left basilar area, possible atelectasis. Symptoms inconsistent with pneumonia, she has no cough or fever. Aspiration possible but less likely given it being the left-hand side. Will recommend continued close monitoring at home. 7:30 AM Repeat troponin has returned normal, patient remains pain-free. She would like to go home. Symptoms appear clinically inconsistent with ACS at this time. Patient's heart score is low. Patient stable for discharge with close outpatient follow-up. Recommend follow-up for transaminases. At this time patient's symptoms are clinically inconsistent with ACS, dissection, or PE. Discussed red flags for which to return. I have extensively reviewed the treatment plan and discharge instructions with the patient. I have addressed all patient concerns at this time. The patient was made aware of what symptoms to monitor for that would warrant a return to the emergency department. Discussed the plan with the patient, they demonstrate verbal understanding and agreement with our assessment and plan at this time. The documentation in this chart was dictated using [employer] dictation software. Please excuse any dictation errors. FINDINGS: Lungs: Left basilar patchy opacity. Pleural spaces: No pneumothorax or sizable pleural effusion. Heart/Mediastinum: Similar appearance to 09/18/2023 study. Bones/joints: No acute abnormality. IMPRESSION: Left basilar patchy opacity, possible pneumonia or atelectasis. Thank you for allowing us to participate in the care of your patient. Dictated and Authenticated by: Prakash Jaimes MD 10/19/2023 6:10 AM Eastern Time ([place] & [place]) Quality:SDOH Health Related Social Needs: No Data to Display PFSH All Active Problems (Updated 10/19/23 @ 06:22 by Miguel Low DO) Chest pain (Acute) Transaminitis (Acute) Hyperplastic colon polyp (Acute) Atrial tachycardia (Acute) Fatigue (Acute) Screening for colon cancer (Acute) Medical History Paroxysmal atrial fibrillation Former smoker Vaginal atrophy Urinary urgency Polyarthralgia Sleep disturbance Surgical History Hx of colonoscopy (~05/04/22) Abdominal hysterectomy (~02/2005) FINGER FUSION (~02/2015) Family History Mother Essential hypertension Heart disease BYPASS Hyperlipidemia Father Essential hypertension Personal history of malignant neoplasm PROSTATE Hyperlipidemia Sister Essential hypertension Hyperlipidemia Brother Essential hypertension Hyperlipidemia Grandfather No problems noted. Grandfather No problems noted. Grandmother No problems noted. Grandmother No problems noted. Sister Essential hypertension Hyperlipidemia Son No problems noted. Son No problems noted. Daughter Depression Social History Smoking/Tobacco Use Status: Never Smoking risk assessment performed?: Yes Alcohol Intake: never Drug use: Never Substance use type: does not use Housing: house Current gender identity: female Do you feel safe at home: Yes Do you feel safe in your relationship?: Yes Discharge Plan Disposition Patient Disposition: Home Discharge Details Clinical Impression: Transaminitis, Chest pain Primary Care Provider: Jordyn Bruno ED Provider: Miguel Low Meds and New Rx's Prescriptions: No Action flecainide 50 mg tablet 100 mg PO Q12H diltiazem HCl [DILT-XR] 180 mg capsule,ext.rel 24h degradable 240 mg PO DAILY losartan 25 mg tablet 25 tab PO DAILY Patient Comments: TAKE ONE TABLET BY MOUTH EVERY DAY Discharge Instructions Instructions: Chest Pain (ED) Additional Instructions: At this time your workup has returned very reassuring. There is no evidence of heart attack, pancreatitis or other significant abnormality. Your liver numbers are slightly elevated, this could have been from a mild virus. Please avoid any alcohol or Tylenol over the next month. Please follow-up closely with your primary care provider to have your blood redrawn within the next 2 to 4 weeks to reassess the trending for your liver numbers. If you notice any worsening of your symptoms, or any new symptoms such as vomiting, diarrhea, fever, chills, shortness of breath, chest pain, numbness, weakness, or fainting , please return immediately to the emergency department for reevaluation. Please follow up with your primary care provider as soon as possible for reassessment and reevaluation. As always, it was a pleasure participating in your medical care today. Referrals: Jordyn Bruno [Primary Care Provider] - POCUS Exam (ED) Limited Cardiac Exam DATE OF EXAM: 10/19/23 TIME OF EXAM: 04:44 PROVIDER THAT PERFORMED THE STUDY: Miguel Low REASON FOR EXAM: Chest pain VISUALIZED STRUCTURES: Left atrium, Left ventricle, Right ventricle and Interventricular septum VIEW OBTAINED: Parasternal long-axis and Parasternal short-axis PERTINENT FINDINGS/IMPRESSION: No apparent abnormalities Exam complete
[2023-10-19 04:23] LABS: ALT 84 U/L (14-59); AST 90 U/L (15-37); Albumin 3.6 g/dL (3.4-5.0); Alkaline Phosphatase 90 U/L (46-116); Anion Gap 10.1 mmol/L (3-11); BUN 12 mg/dL (7-18); Bilirubin, Total 0.4 mg/dL (0.2-1.0); CO2 26.9 mmol/L (21.0-32.0); CREATININE 0.9 mg/dL (0.55-1.02); Calcium 9.2 mg/dL (8.5-10.1); Chloride 106 mmol/L (98-107); Glucose 124 mg/dL (74-106); Lipase 52 U/L (16-77); Potassium 3.8 mmol/L (3.5-5.1); Sodium 143 mmol/L (136-145); Total Protein 6.9 g/dL (6.4-8.2); Troponin I < 50 ng/L (< or =60)
[2023-10-19 05:07] LABS: D-Dimer 341 ng/mlFEU (<500)
--- NOTE | 2023-10-19 05:30 | DI.RAD_ITS ---
Exam(s) XR PORTABLE CHEST AP EXAM: XR PORTABLE CHEST AP CLINICAL HISTORY: chest pain, left TECHNIQUE: 2D digital imaging was performed. COMPARISON: 18 September 2023 FINDINGS: Exam is limited by under penetration. LUNGS: The left lung base is not well penetrated. Infiltrate cannot be excluded in this location. N o pleural abnormality seen. HEART: Normal size. AORTA: Normal diameter. BONES: Unremarkable for age. Soft tissues: Unremarkable. IMPRESSION: Limited exam. Left basilar infiltrate or atelectasis not excluded. The exam is otherwise unremarkab le. DATA REPOSITORY: RADIATION DOSE DELIVERED:
--- NOTE | 2023-10-19 06:10 | DI.VRAD_ITS ---
PROCEDURE INFORMATION: Exam: XR Chest Exam date and time: 10/19/2023 5:36 AM Age: 58 years old Clinical indication: Left-sided; Patient HX: Chest pain, left TECHNIQUE: Imaging protocol: Radiologic exam of the chest. Views: 1 view. COMPARISON: CR XR CHEST 09/18/2023 and 01/11/2020 FINDINGS: Lungs: Left basilar patchy opacity. Pleural spaces: No pneumothorax or sizable pleural effusion. Heart/Mediastinum: Similar appearance to 09/18/2023 study. Bones/joints: No acute abnormality. IMPRESSION: Left basilar patchy opacity, possible pneumonia or atelectasis. Dictated and Authenticated by: Prakash Jaimes MD. Ordering:SHANNAN Rivera MD
[2023-10-19 07:06] LABS: Troponin I < 50 ng/L (< or =60)
[2023-10-21 11:47] LABS: Hepatitis A Antibody IgM Negative (Negative); Hepatitis B Core Antibody Negative (Negative); Hepatitis B surface Ag Negative (Negative); Hepatitis C Ab w Rflx HCV PCR Negative (Negative)
== END 2023-10-19 07:28 | disposition home or self-care (01) ==
PROVIDERS: Emergency Provider Student in an Organized Health Care Education/Training Program; PCP Nurse Practitioner Family
DX: R07.9 Chest pain, unspecified (principal); R74.01 Elevation of levels of liver transaminase levels; Z86.79 Personal history of other diseases of the circulatory system; E78.00 Pure hypercholesterolemia, unspecified
CPT/HCPCS: 36415; 80053; 83690; 86704; 86709; 86803; 87340; 93005; 93308; 96360; 96361; 99284; 71045; 84484; 85025; 85379; 93010; 99283

== ENCOUNTER 2023-10-25 11:20 | Outpatient (REF) | payer OTHER, SELFPAY ==
[2023-10-25 15:46] LABS: Abs Immature Grans 0.02 10^3/uL (0.0-0.06); Absolute Basophil Count 0.07 10^3/uL (0.0-0.2); Absolute Eosinophil Count 0.21 10^3/uL (0.0-0.7); Absolute Lymphocyte Count 1.79 10^3/uL (1.2-3.4); Absolute Monocyte Count 0.61 10^3/uL (0.1-0.8); Absolute Neutrophil Count 5.66 10^3/uL (1.2-6.7); Basophils % 0.8; Eosinophils % 2.5; HCT 39.5 % (36.0-46.0); HGB 12.8 g/dL (11.2-15.7); Immature Grans % 0.2; Lymphocytes % 21.4; MCHC 32.4 % (32.0-36.0); MCV 93 fL (80-95); MPV 11.3 fL (8.0-11.0); Monocytes % 7.3; Neutrophils % 67.8; Platelet Count 407 10^3/uL (130-400); RBC 4.26 10^6/uL (3.93-5.22); RDW 13.4 % (11.7-14.6); RDW-SD 45.5 fL; WBC 8.36 10^3/uL (4.4-10.8)
[2023-10-25 15:50] LABS: Prothrombin Time 9.9 sec (9.1-11.1)
[2023-10-25 16:03] LABS: ALT 55 U/L (14-59); AST 19 U/L (15-37); Albumin 3.7 g/dL (3.4-5.0); Alkaline Phosphatase 91 U/L (46-116); Anion Gap 6.4 mmol/L (3-11); BUN 14 mg/dL (7-18); Bilirubin, Total 0.4 mg/dL (0.2-1.0); CO2 29.6 mmol/L (21.0-32.0); CREATININE 0.9 mg/dL (0.55-1.02); Calcium 9.4 mg/dL (8.5-10.1); Calculated LDL 146 mg/dL (<100); Chloride 105 mmol/L (98-107); Cholesterol 206 mg/dL (<200); Glucose 77 mg/dL (74-106); HDL Cholesterol 36 mg/dL (40-60); Potassium 3.9 mmol/L (3.5-5.1); Sodium 141 mmol/L (136-145); Total Protein 7.4 g/dL (6.4-8.2); Triglyceride 121 mg/dL (<150)
[2023-10-25 16:33] LABS: Hemoglobin A1C 5.4 % (<5.7)
== END 2023-10-25 11:21 | disposition home or self-care (01) ==
LOC: NCHCN 11:20
PROVIDERS: PCP Nurse Practitioner Family; Visit Provider Nurse Practitioner Family
DX: Z00.00 Encounter for general adult medical examination without abnormal findings (principal); R74.01 Elevation of levels of liver transaminase levels; I48.0 Paroxysmal atrial fibrillation; E78.5 Hyperlipidemia, unspecified; R79.89 Other specified abnormal findings of blood chemistry
CPT/HCPCS: 80053; 80061; 83036; 85025; 85610

== ENCOUNTER → 2023-11-21 00:14 | Outpatient (CLI) | payer OTHER, SELFPAY ==
--- NOTE | 2023-11-21 09:50 | DI.MAMMO_ITS ---
Exam(s) MG MAMMO DIAGNOSTIC UNI US BREAST RT LIMITED EXAM: MG MAMMO DIAGNOSTIC UNI and U/S breast RT limited CLINICAL HISTORY: Inconclusive Rt mammo, R92.2, 6-mo f/u. TECHNIQUE: Craniocaudal and mediolateral oblique Full Field Digital Mammography views of the right b reast with Computer Aided Diagnosis followed by Tomosynthesis and right breast ultrasound. COMPARISON: US US BREAST RT COMPLETE from 05/21/2023 US US BREAST RT LIMITED from 11/21/2023 FINDINGS: Mammography/Tomosynthesis: Masses/Architectural Distortion: There is a stable nodule in the medial right breast on the craniocau dad view. No suspicious or new nodules are seen. No areas of architectural distortion are present. Microcalcifictions: No suspicious pleomorphic-type are seen. Skin Thickening/Nipple Retraction: None. Limited right breast US: Echotexture: Normal appearance of the glandular tissue. Shadowing: No suspicious foci. Cyst: There are stable cysts seen at the 12 o'clock position of the right breast for 3 and 4 cm from the nipple. Solid lesions: The ovoid hypoechoic nodule at the 11 o'clock position of the right breast appears sta ble and likely represents a fibroadenoma. Ductal dilation: None. IMPRESSION: 1. No evidence of malignancy is noted. 2. Unless there is more urgent need, follow-up screening mammography is recommended, as per [employer] guidelines. 3. The findings were discussed with the patient on the date of the examination. BI-RADS Category 2 - Benign Findings Breast Density - Category C - Heterogeneously dense Breast density Category C or D implies that the patient has dense breast tissue. Dense breast tissue can make it harder to find cancer on a mammogram. Dense breast tissue is also associated with an incr eased risk of breast cancer. This information about the result of the mammogram report was provided to the patient to raise their awareness. Use this report when you speak with the patient about their risks for breast cancer, which includes their family history. At that time, you may recommend additional screening tests (Ultrasoun d or MRI) as these tests may add significant information. A negative radiographic report should not delay biopsy if a dominant or clinically suspicious mass is present. Up to ten percent of cancers are not identified on mammography. A negative report may reinforce clinical impression. Adenosis and dense breasts may obscure an underlying neoplasm. False positive reports average 6 to 10%. Patient will receive a letter notifying them of these results.
== END ==
PROVIDERS: PCP Nurse Practitioner Family; Visit Provider Nurse Practitioner Family
DX: Z12.31 Encounter for screening mammogram for malignant neoplasm of breast (principal); R92.8 Other abnormal and inconclusive findings on diagnostic imaging of breast
CPT/HCPCS: 76642; 77061; 77065; G0279

== ENCOUNTER 2024-09-24 00:15 | Outpatient (CLI) | payer OTHER, SELFPAY ==
--- NOTE | 2024-09-24 | DI.MAMMO_ITS ---
Exam(s) MG MAMMO SCREENING EXAM: MG MAMMO SCREENING CLINICAL HISTORY: SCREENING, Z12.31 TECHNIQUE: Mammograms were interpreted according to the usual protocol including computer analysis w ith CAD system, tomosynthesis and C-view imaging. COMPARISON: MG MG MAMMO SCREENING from 05/16/2023 MG MG MAMMO SCREEN CALL BACK UNI from 05/21/2023 US US BREAST RT COMPLETE from 05/21/2023 MG MG MAMMO DIAGNOSTIC UNI from 11/21/2023 US US BREAST RT LIMITED from 11/21/2023 FINDINGS: The breasts are composed of scattered fibroglandular densities, Breast Density category B. No suspicious masses or suspicious microcalcifications are seen. Stable circumscribed nodule in the medial right breast. No skin thickening or abnormal axillary lymph nodes are seen. IMPRESSION: BI-RADS Category 2 - Benign Findings Yearly screening mammography is recommended. Breast Density - Category B, scattered fibroglandular densities. A negative radiographic report should not delay biopsy if a dominant or clinically suspicious mass is present. Up to ten percent of cancers are not identified on mammography. A negative report may reinforce clinical impression. Adenosis and dense breasts may obscure an underlying neoplasm. False positive reports average 6 to 10%. Patient will receive a letter notifying them of these results.
== END 2024-09-24 00:35 ==
PROVIDERS: PCP Nurse Practitioner Family; Visit Provider Nurse Practitioner Family
DX: Z12.31 Encounter for screening mammogram for malignant neoplasm of breast (principal); R92.323 Mammographic fibroglandular density, bilateral breasts; D24.1 Benign neoplasm of right breast
CPT/HCPCS: 77063; 77067

== ENCOUNTER 2024-11-21 08:45 | Emergency (ER) | payer OTHER, SELFPAY ==
[2024-11-21] VITALS (8 sets, daily range): BP systolic 149–162; BP diastolic 60–65; PULSE 66–78; RESP 10–23; TEMP 37.2; O2SAT 94–100
--- NOTE | 2024-11-21 08:30 | RT.EKG_ITS ---
APPROVED REPORT Exam: Resting ECG Reason for Exam: Chest Pain Patient Location: E HR:73 bpm ECG Measurements Heart Rate 73 AXIS TN 210 P 52 QRSd 98 QRS -8 QT 411 T 54 QTc 453 Conclusion Sinus rhythm...normal P axis, V-rate 60- 99 Prolonged TN interval...TN >210, V-rate 50- 90 No STEMI
--- NOTE | 2024-11-21 08:56 | ED.GENADUL_ITS ---
Discharge Plan Disposition Patient Disposition: Home Discharge Details Clinical Impression: Chest pain, unspecified Primary Care Provider: Jordyn Bruno ED Provider: Gustavo Bernal Home Meds and New Rx's Prescriptions: Continued flecainide 50 mg tablet 100 mg PO Q12H diltiazem HCl [DILT-XR] 180 mg capsule,ext.rel 24h degradable 240 mg PO DAILY diltiazem HCl 240 mg capsule,extended release 24hr 240 mg PO DAILY losartan 25 mg tablet 25 tab PO DAILY Patient Comments: TAKE ONE TABLET BY MOUTH EVERY DAY Discharge Instructions Instructions: Chest pain Additional Instructions: You were seen in the emergency department for your chest pain. Your blood work showed no sign of heart attack. Your x-ray showed no sign of a collapsed lung. As we discussed if you develop chest pain associated with sweating or if you pass out please return to the emergency department. Otherwise please follow-up with your primary care provider as needed next week. Discharge Data Discharge Date/Time-TO BE ENTERED AT DEPARTURE: 11/21/24 11:05 HPI General Date/Time Provider Initiated Documentation: 11/21/24 08:55 . HPI Narrative: MDM This is an overall very well-appearing normothermic and not tachycardic 59-year-old female with chest pain and ECG reassuring against ACS for which patient will undergo troponin testing. No pain out of proportion to suggest necrotizing soft tissue infection. No tearing quality to suggest aortic dissection. No positional component to suggest pericarditis. Patient is not short of breath hypoxic nor tachycardic so my suspicion is low for PE so I did not send a D-dimer. Patient is not been vomiting to suggest increased risk for esophageal rupture. No rash to chest to suggest zoster. Patient had bronchitis last week but is normothermic and does not have any hypoxia to suggest pneumonia. No trauma to the chest and equal breath sounds without pneumothorax. Patient has a history of atrial fibrillation but is in normal sinus rhythm. She is not hypotensive nor on dialysis and has no significant pericardial effusion so I am not suspicious for pericardial tamponade. Patient does not appear volume overloaded so not concern for acute heart failure. She has not been having abdominal pain to suggest pancreatitis and is not an alcoholic. No right upper quadrant tenderness to suggest acute cholecystitis. HEART SCORE Chest pain Diagnostic Protocol: [-History/Physical/Gestalt: Slightly Suspicious (0)] [- EKG: Nonspecific repolarization (+1)] [- AGE: 45-65 (+1)] [- RISK FACTORS: 1 - 2 risk factors (+1)] [-TROPONIN: <= normal limit (0)] - TOTAL SCORE: 3 - Risk Factors: DM, current or recent smoker, HTN, HLD, family hx of CAD, obesity - INTERPRETATION: With a total score of 3 or less, risk of major cardiac event within six weeks 1.7%, likely lower with two negative troponins. [I explained to the patient that the risk of subsequent major cardiac event within 1 month is not 0, however risk predicted to be less than 2%. Patient verbalized understanding, accepts this risk and shared and the decision for discharge with PCP follow-up for further evaluation and management. They understand to return to the ED immediately with any worsening symptoms, new symptoms or other concerns.] Diagnostic interpretations performed by me: Per my independent interpretation chest x-ray shows: No acute cardiopulmonary process. Per my independent interpretation EKG shows: Narrow complex sinus rhythm at a rate of 73 with first-degree AV block NC interval 210 ms. Left axis deviation no signs of LVH. Mild left lateral chest wall ST segment depressions. Mild depression and aVL. Depressions slightly more pronounced compared to prior. No acute injury pattern. No T wave versions. HPI This is a 59-year-old female with history of atrial tachycardia not on anticoagulation arrived in the emergency department via EMS in the setting of chest upper back pain intermittently. Patient reports that she has had a cough for the past approximately 1 week. She felt lightheaded today and had some pain between her shoulder blades. She has a family history significant for coronary artery disease in her mother. She has hypertension but denies hyperlipidemia diabetes. She denies routine tobacco, ethanol, and illicits. She does not have any positional component to her pain. No shortness of breath. No abdominal pain. She took her home medications this morning. She is not currently having any pain now. She received 324 mg aspirin by EMS. Exam General: Well-appearing in no acute distress speaking in complete sentences. Head: Normocephalic, atraumatic. Eye: Extraocular eye movements intact. No conjunctival injection. No scleral icterus. Ear, nose, mouth, throat: Grossly normal inspection. Normal voice, handling secretions normally. Neck: Trachea midline. Cardiovascular: Well-perfused distal extremities. Regular rate and rhythm. Respiratory: Nonlabored respiration. Clear lungs bilaterally Gastrointestinal: Nondistended abdomen. Musculoskeletal: No significant lower extremity pitting edema. Moving all 4 extremities spontaneously. Skin: Normal for age and race, grossly normal temperature and turgor. No acute rash. Neurologic: Alert and appropriate, no apparent acute deficits. Psychiatric: Mood and manner are appropriate. Grooming and personal hygiene are appropriate. Related Data Home Medications ?Medication ?Instructions ?Recorded ?Confirmed flecainide 50 mg tablet 100 mg PO Q12H 10/12/21 11/21/24 diltiazem HCl 180 mg 240 mg PO DAILY 04/20/22 11/21/24 capsule,extended release 24 hr, controlled (DILT-XR) losartan 25 mg tablet 25 tab PO DAILY 05/03/22 11/21/24 diltiazem HCl 240 mg 240 mg PO DAILY 09/24/24 11/21/24 capsule,extended release 24 hr Allergies Allergy/AdvReac Type Severity Reaction Status Date / Time adhesive Allergy Intermediate hives Unverified 11/21/24 08:57 General Stated Complaint: Chest Pain MIRELLA: 3 Course Vital Signs Vital signs: Vital Signs Temperature 37.2 C 11/21/24 08:45 Pulse 77 11/21/24 08:45 Respiratory Rate 18 11/21/24 08:45 Blood Pressure 162/65 H 11/21/24 08:45 Pulse Oximetry 100 11/21/24 08:45 Temperature 37.2 C 11/21/24 08:45 Temperature Source Oral 11/21/24 08:45 Pulse 77 11/21/24 08:45 Respiratory Rate 18 11/21/24 08:45 Blood Pressure 162/65 H 11/21/24 08:45 Blood Pressure Position Sitting 11/21/24 08:45 Pulse Oximetry 100 11/21/24 08:45 Oxygen Delivery Method Room Air 11/21/24 08:45 Oxygen Flow Rate 0 11/21/24 08:45 Pain Level 0 11/21/24 08:45 Comment Pain is intermittent 11/21/24 08:45 Medical Decision Making Quality:SDOH Health Related Social Needs: No Data to Display PFSH All Active Problems (Updated 11/21/24 @ 10:42 by Gustavo Bernal MD) Chest pain, unspecified (Acute) Lesion of skin of face (Acute) Hyperplastic colon polyp (Acute) Atrial tachycardia (Acute) Fatigue (Acute) Screening for colon cancer (Acute) Medical History SVT (supraventricular tachycardia) Essential hypertension Joint pain Nicotine dependence Atrophic vaginitis Inconclusive mammography Paroxysmal atrial fibrillation Former smoker Vaginal atrophy Urinary urgency Polyarthralgia Sleep disturbance Surgical History History of tonsillectomy and adenoidectomy History of surgical removal of ganglion cyst left index finger 2008 Acquired absence of both cervix and uterus Hx of colonoscopy (~05/04/22) Abdominal hysterectomy (~02/2005) LUCINDA w/ BSO 03/04 FINGER FUSION (~02/2015) Family History Mother Essential hypertension Heart disease BYPASS Hyperlipidemia Osteoporosis Depression Father , 08/2020 age 90 After AAA surgery Essential hypertension Personal history of malignant neoplasm PROSTATE Hyperlipidemia Diabetes FH: prostate cancer Sister Essential hypertension Hyperlipidemia Brother Essential hypertension Hyperlipidemia Heart disease Grandmother Heart disease Sister Essential hypertension Hyperlipidemia Son Depression Crohn's disease Daughter Depression Aunt Breast cancer Social History Smoking/Tobacco Use Status: Never Smoking risk assessment performed?: Yes Alcohol Intake: never Drug use: Never Substance use type: does not use Housing: house Current gender identity: female Do you feel safe at home: Yes Do you feel safe in your relationship?: Yes POCUS Exam (ED) Limited Cardiac Exam DATE OF EXAM: 11/21/24 TIME OF EXAM: 09:35 PROVIDER THAT PERFORMED THE STUDY: Gustavo Bernal IS THIS A REPEAT EXAM DURING THIS ENCOUNTER: no REASON FOR EXAM: Chest pain VISUALIZED STRUCTURES: Four Chambers, Left ventricle and LVOT VIEW OBTAINED: Apical 4-Chamber, Parasternal long-axis and Subxiphoid PERTINENT FINDINGS/IMPRESSION: No pericardial effusion and No RV dilation DIFFERENTIAL DIAGNOSES: Aortic outflow track less than 4 cm, good squeeze, RV less than LV, no significant pericardial effusion. Exam complete
[2024-11-21 09:04] LABS: Abs Immature Grans 0.06 10^3/uL (0.0-0.06); Absolute Eosinophil Count 0.19 10^3/uL (0.0-0.7); Absolute Lymphocyte Count 2.04 10^3/uL (1.2-3.4); Absolute Monocyte Count 1.03 10^3/uL (0.1-0.8); Absolute Neutrophil Count 8.24 10^3/uL (1.2-6.7); Basophils % 0.9 %; Eosinophils % 1.6 %; HCT 38.2 % (36.0-46.0); HGB 12.4 g/dL (11.2-15.7); Immature Grans % 0.5 %; Lymphocytes % 17.5 %; MCHC 32.5 % (32.0-36.0); MCV 93 fL (80-95); MPV 9.6 fL (8.0-11.0); Monocytes % 8.8 %; Neutrophils % 70.7 %; Platelet Count 450 10^3/uL (130-400); RBC 4.13 10^6/uL (3.93-5.22); RDW 13.2 % (11.7-14.6); RDW-SD 45.1 fL; WBC 11.66 10^3/uL (4.4-10.8)
--- NOTE | 2024-11-21 09:15 | DI.RAD_ITS ---
Exam(s) XR PORTABLE CHEST AP EXAM: XR PORTABLE CHEST AP CLINICAL HISTORY: Chest pain TECHNIQUE: 2D digital imaging was performed of the chest. One image was obtained. An AP view was ob tained. COMPARISON: CR,XR XR PORTABLE CHEST AP from 10/19/2023 FINDINGS: MEDIASTINUM: Normal. HEART: Normal. PULMONARY VASCULATURE: Normal. LUNGS: Clear. PLEURAL SPACE: No pleural effusion or pneumothorax. BONE:Within normal limits for the patient's age. OTHER FINDINGS:Normal. IMPRESSION: No acute pulmonary findings. DATA REPOSITORY: RADIATION DOSE DELIVERED:
[2024-11-21 09:23] LABS: Anion Gap 11.2 mmol/L (3-11); BUN 13 mg/dL (7-18); CO2 24.8 mmol/L (21.0-32.0); Calcium 9.2 mg/dL (8.5-10.1); Chloride 104 mmol/L (98-107); Glucose 110 mg/dL (74-106); Magnesium 2.1 mg/dL (1.8-2.4); Potassium 3.5 mmol/L (3.5-5.1); Sodium 140 mmol/L (136-145); Troponin I 5 ng/L (<or=51)
--- NOTE | 2024-11-21 09:56 | DI.VRAD_ITS ---
PROCEDURE INFORMATION: Exam: XR Chest Exam date and time: 11/21/2024 9:15 AM Age: 59 years old Clinical indication: Pain; Other: Chest TECHNIQUE: Imaging protocol: Radiologic exam of the chest. Views: 1 view. COMPARISON: CR XR PORTABLE CHEST AP 10/19/2023 5:36 AM FINDINGS: Lungs: Unremarkable. No consolidation. Pleural spaces: Unremarkable. No pleural effusion. No pneumothorax. Heart/Mediastinum: Prominent cardiac silhouette, unchanged Bones/joints: Unremarkable. IMPRESSION: No acute consolidation Dictated and Authenticated by: Viky Arboleda MD. Orderin Dolores Chen MD
[2024-11-21 10:26] LABS: Troponin I 5 ng/L (<or=51)
== END 2024-11-21 11:05 | disposition home or self-care (01) ==
PROVIDERS: Emergency Provider Emergency Medicine; PCP Nurse Practitioner Family
DX: R07.9 Chest pain, unspecified (principal); I48.0 Paroxysmal atrial fibrillation; I10 Essential (primary) hypertension; I44.0 Atrioventricular block, first degree
CPT/HCPCS: 36415; 80048; 93005; 93308; 99285; 71045; 83735; 84484; 85025; 93010; 99284

== ENCOUNTER 2025-06-25 18:06 | Outpatient (REF) | payer OTHER, SELFPAY ==
[2025-06-25 19:19] LABS: ALT 23 U/L (14-59); AST 15 U/L (15-37); Albumin 3.9 g/dL (3.4-5.0); Alkaline Phosphatase 87 U/L (46-116); Anion Gap 8.8 mmol/L (3-11); BUN 9 mg/dL (7-18); Bilirubin, Total 0.2 mg/dL (0.2-1.0); CO2 27.2 mmol/L (21.0-32.0); Calcium 8.6 mg/dL (8.5-10.1); Chloride 106 mmol/L (98-107); Estimated GFR 99.57 (mL/min/1.73m2); Glucose 85 mg/dL (74-106); Potassium 4.2 mmol/L (3.5-5.1); Sodium 142 mmol/L (136-145); Total Protein 7.0 g/dL (6.4-8.2)
== END 2025-06-25 18:07 | disposition home or self-care (01) ==
LOC: NCHCN 18:06
PROVIDERS: PCP Nurse Practitioner Family; Visit Provider Nurse Practitioner Family
DX: Z00.00 Encounter for general adult medical examination without abnormal findings (principal)
CPT/HCPCS: 80053

== ENCOUNTER → 2025-09-28 15:07 | Outpatient (CLI) | payer OTHER, SELFPAY ==
--- NOTE | 2025-09-28 15:56 | DI.MAMMO_ITS ---
Exam(s) MAMMO SCREENING EXAM: MAMMO SCREENING CLINICAL HISTORY: Z12.31 Screening TECHNIQUE: Mammograms were interpreted according to the usual protocol including computer analysis with CAD system, tomosynthesis and C-view imaging. COMPARISON: 2015 through 2023 FINDINGS: The breasts are composed of scattered fibroglandular densities, Breast Density category B. No suspicious masses or suspicious microcalcifications are seen. No skin thickening or abnormal axillary lymph nodes are seen. There has been no significant change from prior exams. IMPRESSION: BI-RADS Category 1, Negative mammogram Yearly screening mammography is recommended. Breast Density - Category B - There are scattered areas of fibroglandular density. Breast density Category C or D implies that the patient has dense breast tissue. Dense breast tissue can make it harder to find cancer on a mammogram. Dense breast tissue is also associated with an increased risk of breast cancer. This information about the result of the mammogram report was provided to the patient to raise their awareness. Use this report when you speak with the patient about their risks for breast cancer, which includes their family history. At that time, you may recommend additional screening tests (Ultrasound or MRI) as these tests may add significant information. A negative radiographic report should not delay biopsy if a dominant or clinically suspicious mass is present. Up to ten percent of cancers are not identified on mammography. A negative report may reinforce clinical impression. Adenosis and dense breasts may obscure an underlying neoplasm. False positive reports average 6 to 10%. Patient will receive a letter notifying them of these results.
== END ==
LOC: DI 15:07
PROVIDERS: PCP Nurse Practitioner Family; Visit Provider Nurse Practitioner Family
DX: Z12.31 Encounter for screening mammogram for malignant neoplasm of breast (principal); R92.323 Mammographic fibroglandular density, bilateral breasts
CPT/HCPCS: 77063; 77067